=== PATIENT | female | born 1995 | race Caucasian/White ===

== ENCOUNTER 2018-12-10 17:40 | Emergency (ER) | payer SELFPAY ==
--- OUTSIDE RECORDS SUMMARY | 2018-12-10 17:42 | XMS REPORT ---
:1995 [facility] Address [address] [place]. [address] [place] [id number] Care Team Providers Name Role Phone Unavailable Unavailable Unavailable Problems This patient has no known problems. Allergies, Adverse Reactions, Alerts This patient has no known allergies or adverse reactions. Medications This patient has no known medications.
--- NOTE | 2018-12-10 18:21 | ER ---
Nurse's Notes [facility] Name: Vani Beltran Age: 23 yrs Sex: Female : 1995 Arrival Date: 12/10/2018 Time: 17:43 Bed 10 Private MD: None, None Diagnosis: Uvulitis Presentation: 12/10 17:57 Presenting complaint: Patient states: "I woke up with a sore throat today and I am aa5 worried I have strep". Pt denies other symptoms. Pt reports being 9 weeks . Pt reports taking Macrobid for a UTI since Tuesday. Transition of care: patient was not received from another setting of care. Onset of symptoms was December 10, 2018. Risk Assessment: Do you want to hurt yourself or someone else? Patient reports no desire to harm self or others. Initial Sepsis Screen: Does the patient meet any 2 criteria? No. Patient's initial sepsis screen is negative. Does the patient have a suspected source of infection? No. Patient's initial sepsis screen is negative. Care prior to arrival: None. 17:57 Method Of Arrival: Ambulatory aa5 17:57 Acuity: TRUMAN 4 aa5 Triage Assessment: 18:00 General: Appears in no apparent distress. comfortable, Behavior is calm, cooperative. aa5 Pain: Complains of pain in throat. EENT: Reports sore throat . Neuro: Level of Consciousness is awake, alert, obeys commands, Oriented to person, place, time, situation. Cardiovascular: Heart tones S1 S2 present Rhythm is regular. Respiratory: Denies cough, shortness of breath. GI: Patient currently denies nausea, vomiting. : Reports taking Macrobid for UTI. Derm: Skin is pink, warm \\T\\ dry. Musculoskeletal: Range of motion: intact in all extremities. 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 - Social history:: Smoking status: Patient uses tobacco products, smokes one-half pack cigarettes per day. - Ebola Screening: : No symptoms or risks identified at this time. Screenin:00 Abuse screen: Denies threats or abuse. Nutritional screening: No deficits noted. aa5 Tuberculosis screening: No symptoms or risk factors identified. Fall Risk None identified. Assessment: 18:00 Reassessment: See triage assessment . aa5 18:45 Reassessment: Patient is alert, oriented x 3, equal unlabored respirations, skin aa5 warm/dry/pink. Vital Signs: 17:59 BP 108 / 75; Pulse 100; Resp 18 S; Temp 98.4(TE); Pulse Ox 98% on R/A; Pain 5/10; aa5 ED Course: 17:43 Patient arrived in ED. mr 17:44 None, None is Private Physician. mr 17:58 Triage completed. aa5 17:58 Arm band placed on. aa5 18:00 Patient has correct armband on for positive identification. aa5 18:01 Karen Sharma RN is Primary Nurse. aa5 18:02 Nehemiah Moeller PA is PHCP. jr8 18:02 Alo Roland MD is Attending Physician. jr8 18:45 No provider procedures requiring assistance completed. Patient did not have IV access aa5 during this emergency room visit. Administered Medications: No medications were administered Outcome: 18:21 Discharge ordered by . jr8 18:45 Discharged to home ambulatory. aa5 18:45 Condition: stable 18:45 Discharge instructions given to patient, Instructed on discharge instructions, follow up and referral plans. medication usage, Demonstrated understanding of instructions, follow-up care, medications, Prescriptions given X 1. 18:47 Patient left the ED. aa5 Signatures: Maria L Koch Karen Sharma RN RN aa5 Nehemiah Moeller PA PA jr8 Corrections: (The following items were deleted from the chart) 17:59 17:57 Presenting complaint: Patient states: "I woke up with a sore throat today and I aa5 am worried I have strep". Pt denies other symptoms. aa5 18:01 17:57 Presenting complaint: Patient states: "I woke up with a sore throat today and I aa5 am worried I have strep". Pt denies other symptoms. Pt reports being 9 weeks . aa5
--- NOTE | 2018-12-10 18:21 | EDPHYS ---
Physician Documentation [facility] Name: Vani Beltran Age: 23 yrs Sex: Female : 1995 Arrival Date: 12/10/2018 Time: 17:43 Bed 10 Private MD: None, None ED Physician Alo Roland HPI: 12/10 18:15 This 23 yrs old Female presents to ER via Ambulatory with complaints of Sore jr8 Throat. 18:15 The patient presents with sore throat. The patient describes throat pain as constant. jr8 Onset: The symptoms/episode began/occurred acutely, yesterday. Severity of symptoms: At their worst the symptoms were mild, in the emergency department the symptoms are unchanged. Modifying factors: The symptoms are alleviated by nothing, the symptoms are aggravated by swallowing, Patient's oral intake status: good. Associated signs and symptoms: The patient has no apparent associated signs or symptoms. The patient has not experienced similar symptoms in the past. The patient has not recently seen a physician. 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 - Social history:: Smoking status: Patient uses tobacco products, smokes one-half pack cigarettes per day. - Ebola Screening: : No symptoms or risks identified at this time. ROS: 18:15 Eyes: Negative for injury, pain, redness, and discharge, Neck: Negative for injury, jr8 pain, and swelling, Cardiovascular: Negative for chest pain, palpitations, and edema, Respiratory: Negative for shortness of breath, cough, wheezing, and pleuritic chest pain, Abdomen/GI: Negative for abdominal pain, nausea, vomiting, diarrhea, and constipation, Back: Negative for injury and pain, MS/Extremity: Negative for injury and deformity, Skin: Negative for injury, rash, and discoloration, Neuro: Negative for headache, weakness, numbness, tingling, and seizure. 18:15 ENT: Positive for sore throat, Negative for drainage from ear(s), ear pain, rhinorrhea, sinus congestion, sinus pain, difficulty swallowing, difficulty handling secretions, hoarseness. Exam: 18:15 Eyes: Pupils equal round and reactive to light, extra-ocular motions intact. Lids and jr8 lashes normal. Conjunctiva and sclera are non-icteric and not injected. Cornea within normal limits. Periorbital areas with no swelling, redness, or edema. Neck: Trachea midline, no thyromegaly or masses palpated, and no cervical lymphadenopathy. Supple, full range of motion without nuchal rigidity, or vertebral point tenderness. No Meningismus. Cardiovascular: Regular rate and rhythm with a normal S1 and S2. No gallops, murmurs, or rubs. Normal PMI, no JVD. No pulse deficits. Respiratory: Lungs have equal breath sounds bilaterally, clear to auscultation and percussion. No rales, rhonchi or wheezes noted. No increased work of breathing, no retractions or nasal flaring. Abdomen/GI: Soft, non-tender, with normal bowel sounds. No distension or tympany. No guarding or rebound. No evidence of tenderness throughout. Back: No spinal tenderness. No costovertebral tenderness. Full range of motion. Skin: Warm, dry with normal turgor. Normal color with no rashes, no lesions, and no evidence of cellulitis. MS/ Extremity: Pulses equal, no cyanosis. Neurovascular intact. Full, normal range of motion. Neuro: Awake and alert, GCS 15, oriented to person, place, time, and situation. Cranial nerves II-XII grossly intact. Motor strength 5/5 in all extremities. Sensory grossly intact. Cerebellar exam normal. Normal gait. 18:15 ENT: Exam is negative for earache, ear discharge, TM abnormalities, nasal discharge, Mouth: Lips: moist, Oral mucosa: pink and intact, moist, Gums: pink, Tongue: is moist, Posterior pharynx: Airway: patent, Tonsils: bilateral tonsillectomy , Uvula: edematous, erythema. Vital Signs: 17:59 BP 108 / 75; Pulse 100; Resp 18 S; Temp 98.4(TE); Pulse Ox 98% on R/A; Pain 5/10; aa5 MDM: 18:02 Patient medically screened. 8 18:15 Data reviewed: vital signs, nurses notes, and as a result, I will discharge patient. jr8 Data interpreted: Pulse oximetry: on room air is 98 %. Interpretation: normal. Counseling: I had a detailed discussion with the patient and/or guardian regarding: the historical points, exam findings, and any diagnostic results supporting the discharge/admit diagnosis, the need for outpatient follow up, a family practitioner, to return to the emergency department if symptoms worsen or persist or if there are any questions or concerns that arise at home. Administered Medications: No medications were administered Disposition: 12/11 09:20 Co-signature as Attending Physician, Alo Roland MD I agree with the assessment and [facility] plan of care. Disposition: 12/10/18 18:21 Discharged to Home. Impression: Uvulitis . - Condition is Stable. - Discharge Instructions: Uvulitis. - Prescriptions for Amoxicillin 875 mg Oral Tablet - take 1 tablet by ORAL route every 12 hours for 10 days; 20 tablet. - Medication Reconciliation Form, Thank You Letter, Antibiotic Education, Prescription Opioid Use, Work release form form. - Follow up: Private Physician; When: 2 - 3 days; Reason: Recheck today's complaints, Continuance of care, Re-evaluation by your physician. - Problem is new. - Symptoms have improved. Signatures: Alo Roland MD MD cha Calderon, Audri, RN RN aa5 Nehemiah Moeller PA PA jr8 Corrections: (The following items were deleted from the chart) 12/10 18:47 18:21 12/10/2018 18:21 Discharged to Home. Impression: Uvulitis . Condition is Stable. aa5 Forms are Medication Reconciliation Form, Thank You Letter, Antibiotic Education, Prescription Opioid Use. Follow up: Private Physician; When: 2 - 3 days; Reason: Recheck today's complaints, Continuance of care, Re-evaluation by your physician. Problem is new. Symptoms have improved. jr8
== END 2018-12-10 18:47 | disposition home or self-care (01) ==
LOC: ER 17:40
DX: K12.2 Cellulitis and abscess of mouth (principal); F17.210 Nicotine dependence, cigarettes, uncomplicated
CPT/HCPCS: 99282

== ENCOUNTER 2018-12-30 19:51 | Emergency (ER) | payer OTHER, SELFPAY ==
--- OUTSIDE RECORDS SUMMARY | 2018-12-30 19:53 | XMS REPORT ---
:1995 [facility] Address [address] [place] [place] [address] Care Team Providers Name Role Phone Unavailable Unavailable Unavailable Problems This patient has no known problems. Allergies, Adverse Reactions, Alerts This patient has no known allergies or adverse reactions. Medications This patient has no known medications.
[2018-12-30 20:43] LABS: Urine Blood 3+ (NEG); Urine Glucose NEGATIVE (NEG); Urine Protein NEGATIVE (NEG)
--- NOTE | 2018-12-30 21:15 | RAD REPORT ---
EXAM DESCRIPTION: US - Transvaginal OB - 12/30/2018 9:08 pm CLINICAL HISTORY: ABD CRAMPING, Pelvic pain COMPARISON: No comparisonsNo comparisons FINDINGS: A single gestational sac is seen within the uterus. The shape of the sac is somewhat oblon g. Within the sac is a single pole with crown-rump length of 5 mm, correlating to estimated ges tational age of 6 weeks 1 day. Estimated date of delivery is 08/22/2019. Heart rate is 116 BPM.. The placenta is not yet developed due to early gestational age. The maternal adnexa and ovaries are within normal limits. Normal Doppler blood flow was demonstrated to both ovaries. IMPRESSION: Single live early intrauterine gestation with estimated gestational age of 6 weeks 1 day , TIFFANIE 08/22/2019. No unusual or unexpected finding.
[2018-12-30 21:59] LABS: Absolute Lymphocytes (CBC) 3.2 K/uL (0.7-4.9); Absolute Monocytes 0.7 K/uL (0.1-1.3); Absolute Neutrophil 6.2 K/uL (1.8-8.0); Basophils % 0.5 % (0-1.3); Eosinophils % 3.5 % (0-4.4); Lymphocytes % 30.3 % (15.3-44.8); MPV 8.3 fL (7.6-11.3); Monocytes % 7.1 % (3.3-12.3); RBC Red Blood Cell Count 4.43 M/uL (3.86-4.86)
[2018-12-30] MEDS ORDERED: NA CHLORIDE 0.9% 1,000 ML ONE (22:08)
[2018-12-30 22:40] LABS: BUN Blood Urea Nitrogen 6 mg/dL (7-18); Bicarbonate 25 mmol/L (21-32); Glucose Level 82 mg/dL (74-106); HCG, Quantitative 1190 mIU/mL (1-3); Potassium 3.7 mmol/L (3.5-5.1); Sodium Level 141 mmol/L (136-145)
--- NOTE | 2018-12-30 22:57 | ER ---
Nurse's Notes [facility] Name: Vani Beltran Age: 23 yrs Sex: Female : 1995 Arrival Date: 12/30/2018 Time: 19:55 Bed 8 Private MD: None, None Diagnosis: Threatened Presentation: 12/30 20:04 Presenting complaint: Patient states: Pt is supposed to be 13 weeks , had US on tl2 and there was no heartbeat, HCG level was 1,820. Light vaginal bleeding started last night with back pain. Transition of care: patient was not received from another setting of care. Onset of symptoms was December 29, 2018. Risk Assessment: Do you want to hurt yourself or someone else? Patient reports no desire to harm self or others. Initial Sepsis Screen: Does the patient meet any 2 criteria? No. Patient's initial sepsis screen is negative. Does the patient have a suspected source of infection? No. Patient's initial sepsis screen is negative. Care prior to arrival: None. 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 - Social history:: Smoking status: Patient uses tobacco products, smokes one-half pack cigarettes per day. - Ebola Screening: : No symptoms or risks identified at this time. Screenin:07 Abuse screen: Denies threats or abuse. Nutritional screening: No deficits noted. tl2 Tuberculosis screening: No symptoms or risk factors identified. Fall Risk None identified. Assessment: 20:25 Obstetrical Assessment: Patient reports back pain. General: Appears in no apparent aj1 distress. comfortable, Behavior is calm, cooperative, appropriate for age. Pain: Complains of pain in back. Neuro: Level of Consciousness is awake, alert, obeys commands, Oriented to person, place, time, situation, Speech is normal, Facial symmetry appears normal. Cardiovascular: Patient's skin is warm and dry. Respiratory: Airway is patent Respiratory effort is even, unlabored, Respiratory pattern is regular, symmetrical. GI: Abdomen is non-distended. : Reports vaginal bleeding that is light flow. EENT: No signs and/or symptoms were reported regarding the EENT system. Derm: No signs and/or symptoms reported regarding the dermatologic system. Skin is pink, warm \T\ dry. normal. 22:04 Reassessment: Patient appears in no apparent distress at this time. Patient and/or tl2 family updated on plan of care and expected duration. Pain level reassessed. Patient is alert, oriented x 3, equal unlabored respirations, skin warm/dry/pink. 23:07 Reassessment: Patient appears in no apparent distress at this time. Patient and/or tl2 family updated on plan of care and expected duration. Pain level reassessed. Patient is alert, oriented x 3, equal unlabored respirations, skin warm/dry/pink. pt verbalized understanding of discharge instructions, need for follow up and prescription usage. Vital Signs: 20:05 BP 127 / 77; Pulse 87; Resp 18; Temp 98.2(O); Pulse Ox 98% ; Weight 99.79 kg; Height 5 tl2 ft. 5 in. (165.10 cm); Pain 5/10; 22:02 BP 106 / 85; Pulse 97; Resp 18; Pulse Ox 98% on R/A; tl2 23:07 BP 118 / 77; Pulse 74; Resp 18; Pulse Ox 100% on R/A; tl2 20:05 Body Mass Index 36.61 (99.79 kg, 165.10 cm) tl2 ED Course: 19:55 Patient arrived in ED. mr 19:55 None, None is Private Physician. mr 20:05 Triage completed. tl2 20:05 Arm band placed on right wrist. tl2 20:09 Kaitlin Bonds FNP-C is [facility]. snw 20:09 Philip Andersen MD is Attending Physician. snw 20:25 Nicole Castillo, ANGELI is Primary Nurse. aj1 20:25 Patient has correct armband on for positive identification. Bed in low position. Call aj1 light in reach. Side rails up X 1. 20:25 No provider procedures requiring assistance completed. aj1 21:08 US Transvaginal Ob In Process Unspecified. EDMS 21:10 Ultrasound completed. Patient tolerated well. sg3 21:53 Inserted saline lock: 20 gauge in right antecubital area, using aseptic technique. oe Blood collected. 23:07 IV discontinued, intact, bleeding controlled, No redness/swelling at site. Pressure tl2 dressing applied. Administered Medications: 22:01 Drug: NS 0.9% 1000 ml Route: IV; Rate: 1 bolus; Site: right antecubital; tl2 23:09 Follow up: IV Status: Completed infusion; IV Intake: 500ml tl2 Intake: 23:09 IV: 500ml; Total: 500ml. tl2 Outcome: 22:57 Discharge ordered by . snmicaela 23:07 Discharged to home ambulatory. tl2 23:07 Condition: stable 23:07 Discharge instructions given to patient, Instructed on discharge instructions, follow up and referral plans. medication usage, Demonstrated understanding of instructions, follow-up care, medications, Prescriptions given X 1. 23:09 Patient left the ED. tl2 Signatures: Dispatcher [employer] EDMS Nicole Castillo RN RN aj1 Kaitlin Bonds, ZIGZAG APPLIQUER-C ZIGZAG APPLIQUER-Csnw Maria L Koch Taylor, RN RN tl2 Carter Pro Sarah sg3
--- NOTE | 2018-12-30 22:57 | EDPHYS ---
Physician Documentation [facility] Name: Vani Beltran Age: 23 yrs Sex: Female : 1995 Arrival Date: 12/30/2018 Time: 19:55 Bed 8 Private MD: None, None ED Physician Philip Andersen HPI: 12/30 20:24 This 23 yrs old Female presents to ER via Ambulatory with complaints of snw Vaginal Bleeding, + Preg <12wks. 20:24 The patient presents with vaginal bleeding that is light. Onset: The symptoms/episode snw began/occurred today. Associated signs and symptoms: Pertinent positives: vaginal bleeding. Severity of symptoms: At their worst the symptoms were very mild. The patient is sexually active, reportedly has a single partner. The patient has not experienced similar symptoms in the past. The patient has been recently seen by a physician: an line tester specialist. pt seen at [facility] for dating US on (2 days ago).No noted per US. 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 - Social history:: Smoking status: Patient uses tobacco products, smokes one-half pack cigarettes per day. - Ebola Screening: : No symptoms or risks identified at this time. ROS: 20:18 Constitutional: Negative for fever, chills, and weight loss, Eyes: Negative for injury, snw pain, redness, and discharge, ENT: Negative for injury, pain, and discharge, Neck: Negative for injury, pain, and swelling, Cardiovascular: Negative for chest pain, palpitations, and edema, Respiratory: Negative for shortness of breath, cough, wheezing, and pleuritic chest pain, Abdomen/GI: Negative for abdominal pain, nausea, vomiting, diarrhea, and constipation, Back: Negative for injury and pain, : Negative for injury, discharge, and swelling, light vaginal bleeding MS/Extremity: Negative for injury and deformity, Skin: Negative for injury, rash, and discoloration, Neuro: Negative for headache, weakness, numbness, tingling, and seizure, Psych: Negative for depression, anxiety, suicide ideation, homicidal ideation, and hallucinations. Exam: 20:18 Constitutional: This is a well developed, well nourished patient who is awake, alert, snw and in no acute distress. Head/Face: Normocephalic, atraumatic. Eyes: Pupils equal round and reactive to light, extra-ocular motions intact. Lids and lashes normal. Conjunctiva and sclera are non-icteric and not injected. Cornea within normal limits. Periorbital areas with no swelling, redness, or edema. ENT: Nares patent. No nasal discharge, no septal abnormalities noted. Tympanic membranes are normal and external auditory canals are clear. Oropharynx with no redness, swelling, or masses, exudates, or evidence of obstruction, uvula midline. Mucous membranes moist. Neck: Trachea midline, no thyromegaly or masses palpated, and no cervical lymphadenopathy. Supple, full range of motion without nuchal rigidity, or vertebral point tenderness. No Meningismus. Chest/axilla: Normal chest wall appearance and motion. Nontender with no deformity. No lesions are appreciated. Cardiovascular: Regular rate and rhythm with a normal S1 and S2. No gallops, murmurs, or rubs. Normal PMI, no JVD. No pulse deficits. Respiratory: Lungs have equal breath sounds bilaterally, clear to auscultation and percussion. No rales, rhonchi or wheezes noted. No increased work of breathing, no retractions or nasal flaring. Abdomen/GI: Soft, non-tender, with normal bowel sounds. No distension or tympany. No guarding or rebound. No evidence of tenderness throughout. Back: No spinal tenderness. No costovertebral tenderness. Full range of motion. Skin: Warm, dry with normal turgor. Normal color with no rashes, no lesions, and no evidence of cellulitis. MS/ Extremity: Pulses equal, no cyanosis. Neurovascular intact. Full, normal range of motion. Neuro: Awake and alert, GCS 15, oriented to person, place, time, and situation. Cranial nerves II-XII grossly intact. Motor strength 5/5 in all extremities. Sensory grossly intact. Cerebellar exam normal. Normal gait. Psych: Awake, alert, with orientation to person, place and time. Behavior, mood, and affect are within normal limits. Vital Signs: 20:05 BP 127 / 77; Pulse 87; Resp 18; Temp 98.2(O); Pulse Ox 98% ; Weight 99.79 kg; Height 5 tl2 ft. 5 in. (165.10 cm); Pain 5/10; 22:02 BP 106 / 85; Pulse 97; Resp 18; Pulse Ox 98% on R/A; tl2 23:07 BP 118 / 77; Pulse 74; Resp 18; Pulse Ox 100% on R/A; tl2 20:05 Body Mass Index 36.61 (99.79 kg, 165.10 cm) tl2 MDM: 20:10 Patient medically screened. snw 22:57 Data reviewed: vital signs, nurses notes. Data interpreted: Pulse oximetry: on room air snw is 98 %. Interpretation: normal. Counseling: I had a detailed discussion with the patient and/or guardian regarding: the historical points, exam findings, and any diagnostic results supporting the discharge/admit diagnosis, lab results, radiology results, the need for outpatient follow up, to return to the emergency department if symptoms worsen or persist or if there are any questions or concerns that arise at home. Special discussion: Based on the history and exam findings, there is no indication for further emergent testing or inpatient evaluation. I discussed with the patient/guardian the need to see the OB Gyne specialist for further evaluation of the symptoms. 12/30 20:13 Order name: Urine Dipstick--Ancillary (enter results); Complete Time: 21:01 ar5 12/30 20:13 Order name: Urine --Ancillary (enter results); Complete Time: 21:01 ar5 12/30 20:17 Order name: HCG-Quantitative; Complete Time: 22:44 snw 12/30 20:17 Order name: CBC with Diff; Complete Time: 22:20 snw 12/30 20:17 Order name: Chem 7; Complete Time: 22:44 snw 12/30 20:17 Order name: Rh Typing; Complete Time: 22:36 snw 12/30 20:17 Order name: US Transvaginal Ob; Complete Time: 21:22 snw Administered Medications: 22:01 Drug: NS 0.9% 1000 ml Route: IV; Rate: 1 bolus; Site: right antecubital; tl2 23:09 Follow up: IV Status: Completed infusion; IV Intake: 500ml tl2 Disposition: 12/31 01:22 Co-signature as Attending Physician, Philip Andersen MD. rn Disposition: 12/30/18 22:57 Discharged to Home. Impression: Threatened . - Condition is Stable. - Discharge Instructions: Threatened Miscarriage, First Trimester of , Pelvic Rest. - Prescriptions for Vitamin 27- 0.8 mg Oral Tablet - take 1 tablet by ORAL route once daily; 60 tablet. - Medication Reconciliation Form, Thank You Letter, Antibiotic Education, Prescription Opioid Use form. - Follow up: Private Physician; When: 2 - 3 days; Reason: Recheck today's complaints, Continuance of care, Re-evaluation by your physician. Follow up: Emergency Department; When: As needed; Reason: Worsening of condition. Signatures: Dispatcher [employer] EDMS Kaitlin Bonds, RAIL CAR DRIVER-C RAIL CAR DRIVER-Csnw Philip Andersen MD MD rn Knox, Taylor, RN RN tl2 Corrections: (The following items were deleted from the chart) 12/30 23:09 22:57 12/30/2018 22:57 Discharged to Home. Impression: Threatened . Condition tl2 is Stable. Forms are Medication Reconciliation Form, Thank You Letter, Antibiotic Education, Prescription Opioid Use. Follow up: Private Physician; When: 2 - 3 days; Reason: Recheck today's complaints, Continuance of care, Re-evaluation by your physician. Follow up: Emergency Department; When: As needed; Reason: Worsening of condition. snw
== END 2018-12-30 23:09 | disposition home or self-care (01) ==
LOC: ER 19:51
DX: O20.0 Threatened abortion (principal); Z3A.01 Less than 8 weeks gestation of pregnancy
CPT/HCPCS: 36415; 76817; 80048; 81003; 81025; 84702; 85025; 86901; 96360; 99284; J7030

== ENCOUNTER 2019-01-01 07:29 | Emergency (ER) | payer OTHER ==
--- OUTSIDE RECORDS SUMMARY | 2019-01-01 07:31 | XMS REPORT ---
:1995 Author Organization [facility] Address [address] [place]. [address] [place] [id number] Care Team Providers Name Role Phone Unavailable Unavailable Unavailable Problems This patient has no known problems. Allergies, Adverse Reactions, Alerts This patient has no known allergies or adverse reactions. Medications This patient has no known medications.
[2019-01-01 08:08] LABS: Absolute Lymphocytes (CBC) 2.4 K/uL (0.7-4.9); Absolute Monocytes 0.6 K/uL (0.1-1.3); Absolute Neutrophil 4.9 K/uL (1.8-8.0); Basophils % 0.8 % (0-1.3); Hematocrit 37.8 % (36.0-45.0); Lymphocytes % 28.6 % (15.3-44.8); MPV 8.3 fL (7.6-11.3); Monocytes % 7.6 % (3.3-12.3); RBC Red Blood Cell Count 4.23 M/uL (3.86-4.86)
[2019-01-01 09:19] LABS: Urine Blood 3+ (NEG); Urine Glucose NEGATIVE (NEG); Urine Protein 1+ (NEG); Urine Specific Gravity >1.030 (1.005-1.030); Urine pH 5.5 (5.0-7.0)
--- NOTE | 2019-01-01 10:09 | ER ---
Nurse's Notes [facility] Name: Vani Beltran Age: 23 yrs Sex: Female : 1995 Arrival Date: 01/01/2019 Time: 07:32 Bed 17 Private MD: Diagnosis: Threatened Presentation: 01/01 07:35 Presenting complaint: Patient states: "I was seen here on Tuesday for vaginal bleeding aa5 and they said I was 6 weeks but now I am started passing clots around 2 am". Pt denies pain. Transition of care: patient was not received from another setting of care. Onset of symptoms was December 2018. Risk Assessment: Do you want to hurt yourself or someone else? Patient reports no desire to harm self or others. Initial Sepsis Screen: Does the patient meet any 2 criteria? No. Patient's initial sepsis screen is negative. Does the patient have a suspected source of infection? No. Patient's initial sepsis screen is negative. Care prior to arrival: None. 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 - Social history:: Smoking status: Patient uses tobacco products, smokes one-half pack cigarettes per day. - Ebola Screening: : No symptoms or risks identified at this time. Screenin:43 Abuse screen: Denies threats or abuse. Denies injuries from another. Nutritional sv screening: No deficits noted. Tuberculosis screening: No symptoms or risk factors identified. Fall Risk None identified. Assessment: 07:50 General: Appears in no apparent distress. comfortable, well developed, Behavior is sv calm, cooperative, appropriate for age. Pain: Denies pain. Neuro: Level of Consciousness is awake, alert, obeys commands, Oriented to person, place, time, situation, Moves all extremities. Full function Gait is steady, Speech is normal. Respiratory: Airway is patent Respiratory effort is even, unlabored, Respiratory pattern is regular, symmetrical. : Reports vaginal bleeding that is with clots, moderate flow, since Tuesday. Derm: Skin is pink, warm \\T\\ dry. Musculoskeletal: Range of motion: intact in all extremities. 09:50 Reassessment: Patient appears in no apparent distress at this time. No changes from sv previously documented assessment. Patient and/or family updated on plan of care and expected duration. Pain level reassessed. Patient is alert, oriented x 3, equal unlabored respirations, skin warm/dry/pink. Informed pt that the chemistry machine is down at this time but someone is here fixing it. I apologized for the wait. Pt stated that she didn't want to wait for the result, if someone could just call her with it. Informed Jag MUNOZ. 10:00 Reassessment: Jag MUNOZ at bedside speaking with the pt. sv 10:10 Reassessment: Pt stated that she was leaving and not waiting for the paperwork. sv Vital Signs: 07:37 BP 108 / 70; Pulse 90; Resp 16 S; Temp 98.4(TE); Pulse Ox 99% on R/A; Weight 99.79 kg aa5 (R); Height 5 ft. 5 in. (165.10 cm) (R); Pain 0/10; 07:37 Body Mass Index 36.61 (99.79 kg, 165.10 cm) aa5 ED Course: 07:32 Patient arrived in ED. mr 07:35 Arm band placed on. aa5 07:36 Triage completed. aa5 07:43 Alvina Roy, RN is Primary Nurse. sv 07:43 Patient has correct armband on for positive identification. Bed in low position. Call sv light in reach. Door closed. Head of bed elevated. 07:44 Jag Almanza, MILL LABOR SUPERVISOR is PHCP. pm1 07:45 Awaiting ED provider evaluation. sv 08:02 Initial lab(s) drawn, by me, sent to lab. sv 08:07 Awaiting lab results. sv 08:25 Alo Roland MD is Attending Physician. pm1 09:16 Awaiting lab results. sv 10:11 No provider procedures requiring assistance completed. Patient did not have IV access sv during this emergency room visit. Administered Medications: No medications were administered Outcome: 10:09 Discharge ordered by . pm1 10:10 Discharged to home ambulatory, with friend, Pt left without signing paperwork. sv 10:10 Condition: stable 10:11 Patient left the ED. sv Signatures: Alvina Roy RN RN sv Rivera, Mary mr Sharma, Karen, RN RN aa5 Jag Almanza, MILL LABOR SUPERVISOR MILL LABOR SUPERVISOR pm1
--- NOTE | 2019-01-01 10:10 | EDPHYS ---
Physician Documentation [facility] Name: Vani Beltran Age: 23 yrs Sex: Female : 1995 Arrival Date: 01/01/2019 Time: 07:32 Bed 17 Private MD: ED Physician Alo Roland HPI: 01/01 07:52 This 23 yrs old Female presents to ER via Ambulatory with complaints of pm1 Vaginal Bleeding, 6wks . 07:52 The patient presents with vaginal bleeding that is moderate, 3 pads since Tuesday, pm1 with 2 clots since onset of bleeding. Onset: The symptoms/episode began/occurred 3 day(s) ago. Modifying factors: The symptoms are alleviated by nothing, the symptoms are aggravated by nothing. Associated signs and symptoms: Pertinent negatives: constipation, cramping, diarrhea, dysuria, fever, nausea, urinary frequency, vomiting, abdominal pain. Severity of symptoms: in the emergency department the symptoms are actually worse. The patient has been recently seen at the [facility] Emergency Department, for similar complaints labs were performed, an ultrasound was performed, 6 week IUP with U/S in ER 2 days ago. 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 - Social history:: Smoking status: Patient uses tobacco products, smokes one-half pack cigarettes per day. - Ebola Screening: : No symptoms or risks identified at this time. ROS: 07:52 Positive for vaginal bleeding, Negative for urinary symptoms, pelvic pain, flank pm1 pain, burning with urination, difficulty urinating. 07:52 Constitutional: Negative for fever, chills, and weight loss, Eyes: Negative for injury, pain, redness, and discharge, ENT: Negative for injury, pain, and discharge, Neck: Negative for injury, pain, and swelling, Cardiovascular: Negative for chest pain, palpitations, and edema, Respiratory: Negative for shortness of breath, cough, wheezing, and pleuritic chest pain, Abdomen/GI: Negative for abdominal pain, nausea, vomiting, diarrhea, and constipation, Back: Negative for injury and pain, MS/Extremity: Negative for injury and deformity, Skin: Negative for injury, rash, and discoloration, Neuro: Negative for headache, weakness, numbness, tingling, and seizure. Exam: 07:52 Constitutional: This is a well developed, well nourished patient who is awake, alert, pm1 and in no acute distress. Head/Face: Normocephalic, atraumatic. Eyes: Pupils equal round and reactive to light, extra-ocular motions intact. Lids and lashes normal. Conjunctiva and sclera are non-icteric and not injected. Cornea within normal limits. Periorbital areas with no swelling, redness, or edema. ENT: Nares patent. No nasal discharge, no septal abnormalities noted. Tympanic membranes are normal and external auditory canals are clear. Oropharynx with no redness, swelling, or masses, exudates, or evidence of obstruction, uvula midline. Mucous membranes moist. Neck: Trachea midline, no thyromegaly or masses palpated, and no cervical lymphadenopathy. Supple, full range of motion without nuchal rigidity, or vertebral point tenderness. No Meningismus. Chest/axilla: Normal chest wall appearance and motion. Nontender with no deformity. No lesions are appreciated. Cardiovascular: Regular rate and rhythm with a normal S1 and S2. No gallops, murmurs, or rubs. Normal PMI, no JVD. No pulse deficits. Respiratory: Lungs have equal breath sounds bilaterally, clear to auscultation and percussion. No rales, rhonchi or wheezes noted. No increased work of breathing, no retractions or nasal flaring. Abdomen/GI: Soft, non-tender, with normal bowel sounds. No distension or tympany. No guarding or rebound. No evidence of tenderness throughout. Back: No spinal tenderness. No costovertebral tenderness. Full range of motion. Skin: Warm, dry with normal turgor. Normal color with no rashes, no lesions, and no evidence of cellulitis. MS/ Extremity: Pulses equal, no cyanosis. Neurovascular intact. Full, normal range of motion. 07:52 Neuro: Orientation: is normal, Motor: is normal, moves all fours, Sensation: is normal, no obvious gross deficits. Vital Signs: 07:37 BP 108 / 70; Pulse 90; Resp 16 S; Temp 98.4(TE); Pulse Ox 99% on R/A; Weight 99.79 kg aa5 (R); Height 5 ft. 5 in. (165.10 cm) (R); Pain 0/10; 07:37 Body Mass Index 36.61 (99.79 kg, 165.10 cm) aa5 MDM: 07:44 Patient medically screened. pm1 07:50 Data reviewed: vital signs. Data interpreted: Pulse oximetry: on room air is 99 %. pm1 Interpretation: normal. 10:07 ED course: BMP machine and beta HCG machines are not working. microelectronics technician is working pm1 on repairing them. Patient does not want to wait for the results and wants to go home. . 01/01 07:48 Order name: CBC with Diff; Complete Time: 08:25 pm1 01/01 07:48 Order name: BMP; Complete Time: 13:02 pm1 01/01 07:48 Order name: Urine Dipstick-Ancillary (obtain specimen); Complete Time: 08:04 pm1 01/01 07:48 Order name: Beta hcg; Complete Time: 13:02 pm1 01/01 08:12 Order name: Urine Dipstick--Ancillary (enter results); Complete Time: 09:27 bd 01/01 08:12 Order name: Urine --Ancillary (enter results); Complete Time: 09:27 bd Administered Medications: No medications were administered Disposition: 14:15 Co-signature as Attending Physician, Alo Roland MD I agree with the assessment and [facility] plan of care. Disposition: 01/01/19 10:09 Discharged to Home. Impression: Threatened . - Condition is Stable. - Discharge Instructions: Threatened Miscarriage, Pelvic Rest. - Medication Reconciliation Form, Thank You Letter form. - Follow up: Emergency Department; When: As needed; Reason: Worsening of condition. Follow up: Private Physician; When: 2 - 3 days; Reason: Recheck today's complaints, Continuance of care, Re-evaluation by your physician. - Problem is new. - Symptoms have improved. Signatures: Dispatcher [employer] Alvina Quinones RN RN sv Anderson, Corey, MD MD cha Calderon, Audri RN RN aa5 Jag Almanza NP QUALITY ASSURANCE ADVISOR pm1 Corrections: (The following items were deleted from the chart) 10:11 10:09 01/01/2019 10:09 Discharged to Home. Impression: Threatened . Condition sv is Stable. Forms are Medication Reconciliation Form, Thank You Letter, Antibiotic Education, Prescription Opioid Use. Follow up: Emergency Department; When: As needed; Reason: Worsening of condition. Follow up: Private Physician; When: 2 - 3 days; Reason: Recheck today's complaints, Continuance of care, Re-evaluation by your physician. Problem is new. Symptoms have improved. pm1
[2019-01-01 12:15] LABS: BUN Blood Urea Nitrogen 7 mg/dL (7-18); Bicarbonate 25 mmol/L (21-32); Glucose Level 91 mg/dL (74-106); HCG, Quantitative 942 mIU/mL (1-3); Potassium 3.7 mmol/L (3.5-5.1); Sodium Level 141 mmol/L (136-145)
== END 2019-01-01 10:11 | disposition home or self-care (01) ==
LOC: ER 07:29
DX: O20.0 Threatened abortion (principal); O99.331 Smoking (tobacco) complicating pregnancy, first trimester; F17.210 Nicotine dependence, cigarettes, uncomplicated; Z3A.01 Less than 8 weeks gestation of pregnancy
CPT/HCPCS: 36415; 80048; 81003; 81025; 84702; 85025; 99283

== ENCOUNTER 2019-01-01 20:31 | Emergency (ER) | payer OTHER ==
--- OUTSIDE RECORDS SUMMARY | 2019-01-01 20:33 | XMS REPORT ---
:1995 [facility] Address [address] [place]. [address] [place] [id number] Care Team Providers Name Role Phone Unavailable Unavailable Unavailable Problems This patient has no known problems. Allergies, Adverse Reactions, Alerts This patient has no known allergies or adverse reactions. Medications This patient has no known medications.
[2019-01-01 21:05] LABS: Absolute Monocytes 0.8 K/uL (0.1-1.3); Absolute Neutrophil 6.2 K/uL (1.8-8.0); Basophils % 0.6 % (0-1.3); Hematocrit 35.3 % (36.0-45.0); Lymphocytes % 28.9 % (15.3-44.8); MPV 8.6 fL (7.6-11.3); Monocytes % 7.3 % (3.3-12.3)
[2019-01-01] MEDS ORDERED: FENTANYL CITR 100 MCG/2 ML ONE ×2 (21:15→22:57)
[2019-01-01] MEDS ORDERED: NA CHLORIDE 0.9% 1,000 ML ONE (21:15)
[2019-01-01 21:19] LABS: BUN Blood Urea Nitrogen 10 mg/dL (7-18); Bicarbonate 23 mmol/L (21-32); Glucose Level 111 mg/dL (74-106); Potassium 3.7 mmol/L (3.5-5.1); Sodium Level 139 mmol/L (136-145)
--- NOTE | 2019-01-01 23:56 | ER ---
Nurse's Notes [facility] Name: Vani Beltran Age: 23 yrs Sex: Female : 1995 Arrival Date: 01/01/2019 Time: 20:33 Bed 24 Private MD: Diagnosis: Complete or unspecified spontaneous without complication Presentation: 01/01 20:37 Presenting complaint: EMS states: patient was here this morning for the same complaint mg2 of vaginal bleeding, 13 weeks . she also complained of abdominal pain. no previous hx of miscarriages. she said bleeding was non-stop since she left ed this morning \T\ 1000H. Transition of care: patient was not received from another setting of care. Onset of symptoms was January 01, 2019. Risk Assessment: Do you want to hurt yourself or someone else? Patient reports no desire to harm self or others. Initial Sepsis Screen: Does the patient meet any 2 criteria? No. Patient's initial sepsis screen is negative. Does the patient have a suspected source of infection? No. Patient's initial sepsis screen is negative. Care prior to arrival: Medication(s) given: Normal saline infusion, 500 mL. 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 - Social history:: Smoking status: Patient uses tobacco products, smokes one-half pack cigarettes per day, Patient/guardian denies using alcohol, street drugs, IV drugs. - Ebola Screening: : No symptoms or risks identified at this time. Screenin:43 Abuse screen: Denies threats or abuse. Denies injuries from another. Nutritional mg2 screening: No deficits noted. Tuberculosis screening: No symptoms or risk factors identified. Fall Risk IV access (20 points). Assessment: 20:46 General: Appears in no apparent distress. comfortable, Behavior is calm, cooperative. mg2 Pain: Complains of pain in abdomen Pain does not radiate. Pain currently is 8 out of 10 on a pain scale. Quality of pain is described as aching, Pain began gradually, Is intermittent. Neuro: Level of Consciousness is awake, alert, obeys commands, Oriented to person, place, time, situation. Cardiovascular: Capillary refill < 3 seconds Patient's skin is warm and dry. Respiratory: Airway is patent Respiratory effort is even, unlabored, Respiratory pattern is regular, symmetrical. GI: Reports lower abdominal pain. : vaginal bleeding. EENT: No signs and/or symptoms were reported regarding the EENT system. Derm: Skin is intact, is healthy with good turgor, Skin is pink, warm \T\ dry. normal. Musculoskeletal: Circulation, motion, and sensation intact. Capillary refill < 3 seconds. 21:22 Reassessment: patient sent to ultrasound via wheelchair. mg2 Vital Signs: 20:40 BP 123 / 64; Pulse 91; Resp 18; Temp 98.7; Pulse Ox 94% on R/A; Weight 99.79 kg; Height mg2 5 ft. 5 in. (165.10 cm); Pain 8/10; 22:44 BP 107 / 65; Pulse 83; Resp 18; Pulse Ox 100% on R/A; Pain 8/10; mg2 01/02 00:27 BP 115 / 65; Pulse 80; Resp 18; Pulse Ox 100% on R/A; Pain 3/10; mg2 01/01 20:40 Body Mass Index 36.61 (99.79 kg, 165.10 cm) mg2 ED Course: 01/01 20:33 Patient arrived in ED. mg2 20:37 Gordo Uribe, RN is Primary Nurse. mg2 20:40 Triage completed. mg2 20:43 Arm band placed on. mg2 20:44 Maintain EMS IV. Dressing intact. Good blood return noted. Site clean \T\ dry. Gauge \T\ mg 2 site: 20 \T\ RAC. IV is patent, is intact, with fluids infusing freely, with good blood return. 20:47 Patient has correct armband on for positive identification. mg2 20:53 Kaitlin Bonds FNP-C is PHCP. snw 20:53 Bertha Reaves MD is Attending Physician. snw 20:58 TS Sent. mg2 20:58 Basic Metabolic Panel Sent. mg2 20:58 CBC with Diff Sent. mg2 21:03 Patient taken to ultrasound. liang 21:26 US Transvaginal Ob In Process Unspecified. EDMS 01/02 00:17 Assist provider with pelvic exam: Set up pelvic tray. Performed by Kaitlin GARCIA Patient tolerated well. IV discontinued, intact, bleeding controlled, No redness/swelling at site. Pressure dressing applied. Administered Medications: 01/01 21:16 Drug: NS 0.9% 1000 ml Route: IV; Rate: 1 bolus; Site: right antecubital; mg2 23:25 Follow up: Response: No adverse reaction; IV Status: Completed infusion mg2 21:16 Drug: fentaNYL (PF) 25 mcg Route: IVP; Site: right antecubital; mg2 22:30 Follow up: Response: No adverse reaction; Marked relief of symptoms mg2 22:55 Drug: fentaNYL (PF) 25 mcg Route: IVP; Site: right antecubital; mg2 01/02 00:23 Follow up: Response: No adverse reaction; Marked relief of symptoms mg2 00:22 Drug: METHERgine 0.2 mg Route: PO; mg2 00:22 Follow up: Response: No adverse reaction; Medication administered at discharge. mg2 00:22 Drug: [place] 5 mg-325 mg 1 tabs Route: PO; mg2 00:22 Follow up: Response: No adverse reaction; Medication administered at discharge. mg2 Outcome: 01/01 23:55 Discharge ordered by MD. mcmahon 01/02 00:28 Discharged to home ambulatory. mg2 Condition: stable Discharge instructions given to patient, family, Instructed on discharge instructions, follow up and referral plans. medication usage, Demonstrated understanding of instructions, follow-up care, medications, Prescriptions given X 2. 00:36 Patient left the ED. mg2 Signatures: Dispatcher [employer] EDAZ Kaitlin Bonds FNP-C BRANCH SERVICE SPECIALIST-Elier Diaz jd, Michele, ANGELI RN mg2 Corrections: (The following items were deleted from the chart) 01/01 21:32 20:58 ABO/RH TYPING+BB.LAB.BRZ drawn and sent. mg2 EDAZ 01/02 00:18 01/01 20:44 No provider procedures requiring assistance completed. mg2 mg2
--- NOTE | 2019-01-01 23:56 | EDPHYS ---
Physician Documentation [facility] Name: Vani Beltran Age: 23 yrs Sex: Female : 1995 Arrival Date: 01/01/2019 Time: 20:33 Bed 24 Private MD: ED Physician Bertha Revaes HPI: 01/02 00:44 This 23 yrs old Female presents to ER via EMS with complaints of miscarriage, snw vaginal bleeding. 00:44 The patient presents with vaginal bleeding that is heavy, with clots. Onset: The snw symptoms/episode began/occurred gradually, this morning, and became worse 2 hours prior to arrival. Modifying factors: The symptoms are alleviated by nothing. Associated signs and symptoms: Pertinent positives: cramping, vaginal bleeding. Severity of symptoms: At their worst the symptoms were moderate. The patient has not experienced similar symptoms in the past. The patient has been recently seen by a physician: The patient has been recently seen at the [facility] Emergency Department, for similar complaints in the am . 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 - Social history:: Smoking status: Patient uses tobacco products, smokes one-half pack cigarettes per day, Patient/guardian denies using alcohol, street drugs, IV drugs. - Ebola Screening: : No symptoms or risks identified at this time. ROS: 01/02 00:43 Constitutional: Negative for fever, chills, and weight loss, Eyes: Negative for injury, snw pain, redness, and discharge, ENT: Negative for injury, pain, and discharge, Neck: Negative for injury, pain, and swelling, Cardiovascular: Negative for chest pain, palpitations, and edema, Respiratory: Negative for shortness of breath, cough, wheezing, and pleuritic chest pain, Abdomen/GI: Negative for abdominal pain, nausea, vomiting, diarrhea, and constipation, Back: Negative for injury and pain, MS/Extremity: Negative for injury and deformity, Skin: Negative for injury, rash, and discoloration, Neuro: Negative for headache, weakness, numbness, tingling, and seizure. : Positive for vaginal bleeding, abdominal cramping. Exam: 00:38 Constitutional: This is a well developed, well nourished patient who is awake, alert, snw and in no acute distress. Head/Face: Normocephalic, atraumatic. Eyes: Pupils equal round and reactive to light, extra-ocular motions intact. Lids and lashes normal. Conjunctiva and sclera are non-icteric and not injected. Cornea within normal limits. Periorbital areas with no swelling, redness, or edema. ENT: Nares patent. No nasal discharge, no septal abnormalities noted. Tympanic membranes are normal and external auditory canals are clear. Oropharynx with no redness, swelling, or masses, exudates, or evidence of obstruction, uvula midline. Mucous membranes moist. Neck: Trachea midline, no thyromegaly or masses palpated, and no cervical lymphadenopathy. Supple, full range of motion without nuchal rigidity, or vertebral point tenderness. No Meningismus. Chest/axilla: Normal chest wall appearance and motion. Nontender with no deformity. No lesions are appreciated. Cardiovascular: Regular rate and rhythm with a normal S1 and S2. No gallops, murmurs, or rubs. Normal PMI, no JVD. No pulse deficits. Respiratory: Lungs have equal breath sounds bilaterally, clear to auscultation and percussion. No rales, rhonchi or wheezes noted. No increased work of breathing, no retractions or nasal flaring. Abdomen/GI: Soft, non-tender, with normal bowel sounds. No distension or tympany. No guarding or rebound. No evidence of tenderness throughout. Back: No spinal tenderness. No costovertebral tenderness. Full range of motion. Pelvic Exam: Normal external genitalia. Speculum exam with open cervical os, Moderate bleeding noted. Large clots evacuated. Fetus expelled into speculum. Sent POC to lab. Gravid uterus. Bleeding controlled post POC removal Skin: Warm, dry with normal turgor. Normal color with no rashes, no lesions, and no evidence of cellulitis. MS/ Extremity: Pulses equal, no cyanosis. Neurovascular intact. Full, normal range of motion. Neuro: Awake and alert, GCS 15, oriented to person, place, time, and situation. Cranial nerves II-XII grossly intact. Motor strength 5/5 in all extremities. Sensory grossly intact. Cerebellar exam normal. Normal gait. Vital Signs: 01/01 20:40 BP 123 / 64; Pulse 91; Resp 18; Temp 98.7; Pulse Ox 94% on R/A; Weight 99.79 kg; Height mg2 5 ft. 5 in. (165.10 cm); Pain 8/10; 22:44 BP 107 / 65; Pulse 83; Resp 18; Pulse Ox 100% on R/A; Pain 8/10; mg2 01/02 00:27 BP 115 / 65; Pulse 80; Resp 18; Pulse Ox 100% on R/A; Pain 3/10; mg2 01/01 20:40 Body Mass Index 36.61 (99.79 kg, 165.10 cm) mg2 MDM: 01/01 21:01 Patient medically screened. snw 01/02 00:43 Data reviewed: vital signs, nurses notes. Data interpreted: Pulse oximetry: on room air snw is 100 %. Interpretation: normal. Counseling: I had a detailed discussion with the patient and/or guardian regarding: the historical points, exam findings, and any diagnostic results supporting the discharge/admit diagnosis, lab results, radiology results, the need for outpatient follow up, to return to the emergency department if symptoms worsen or persist or if there are any questions or concerns that arise at home. Response to treatment: the patient's symptoms have markedly improved after treatment. Special discussion: Based on the patient's Hx, exam, and Dx evaluation, there is no indication for emergent surgery or inpatient Tx. It is understood by the patient/guardian that if the Sx's persist or worsen they need to return immediately for re-evaluation. Based on the history and exam findings, there is no indication for further emergent testing or inpatient evaluation. I discussed with the patient/guardian the need to see the OB Gyne specialist for further evaluation of the symptoms. 00:46 ED course: Pt alert and Ox3, no acute distress. Voices understanding of treatment plan snw and follow up. 01/01 20:50 Order name: Basic Metabolic Panel; Complete Time: 21:29 mg2 01/01 20:50 Order name: CBC with Diff; Complete Time: 21:18 mg2 01/01 20:53 Order name: TS; Complete Time: 22:11 snw 01/01 21:01 Order name: US Transvaginal Ob snw 01/01 22:09 Order name: ABO/RH no charge; Complete Time: 22:11 EDIA 01/01 20:50 Order name: IV Saline Lock; Complete Time: 20:50 mg2 01/01 20:50 Order name: Labs collected and sent; Complete Time: 20:50 mg2 01/01 20:50 Order name: NPO; Complete Time: 20:50 mg2 Administered Medications: 01/01 21:16 Drug: NS 0.9% 1000 ml Route: IV; Rate: 1 bolus; Site: right antecubital; mg2 23:25 Follow up: Response: No adverse reaction; IV Status: Completed infusion mg2 21:16 Drug: fentaNYL (PF) 25 mcg Route: IVP; Site: right antecubital; mg2 22:30 Follow up: Response: No adverse reaction; Marked relief of symptoms mg2 22:55 Drug: fentaNYL (PF) 25 mcg Route: IVP; Site: right antecubital; mg2 01/02 00:23 Follow up: Response: No adverse reaction; Marked relief of symptoms mg2 00:22 Drug: METHERgine 0.2 mg Route: PO; mg2 00:22 Follow up: Response: No adverse reaction; Medication administered at discharge. mg2 00:22 Drug: [place] 5 mg-325 mg 1 tabs Route: PO; mg2 00:22 Follow up: Response: No adverse reaction; Medication administered at discharge. mg2 Disposition: 01/01/19 23:55 Discharged to Home. Impression: Complete or unspecified spontaneous without complication. - Condition is Stable. - Discharge Instructions: Rehydration, Pediatric, Miscarriage. - Prescriptions for Tylenol- Codeine #3 300-30 mg Oral Tablet - take 2 tablets by ORAL route every 6 hours As needed; 16 tablet. Methergine 0.2 mg Oral tablet - take 1 tablet by ORAL route every 6 hours; 4 tablet. - Medication Reconciliation Form, Thank You Letter, Antibiotic Education, Prescription Opioid Use form. - Follow up: Private Physician; When: 1 - 2 days; Reason: Recheck today's complaints, Continuance of care, Re-evaluation by your physician. Follow up: Emergency Department; When: As needed; Reason: Worsening of condition. Signatures: Dispatcher [employer] [facility] Kaitlin Bonds, DENTAL TECH-C DENTAL TECH-Csnw Gordo Uribe, RN RN mg2 Corrections: (The following items were deleted from the chart) 01/01 21:32 20:50 ABO/RH TYPING+BB.LAB.BRZ ordered. [facility] 01/02 00:36 01/01 23:55 01/01/2019 23:55 Discharged to Home. Impression: Complete or unspecified mg2 spontaneous without complication. Condition is Stable. Forms are Medication Reconciliation Form, Thank You Letter, Antibiotic Education, Prescription Opioid Use. Follow up: Private Physician; When: 1 - 2 days; Reason: Recheck today's complaints, Continuance of care, Re-evaluation by your physician. Follow up: Emergency Department; When: As needed; Reason: Worsening of condition. snw
[2019-01-02] MEDS ORDERED: HYDROCODONE/APAP 5/325 MG TAB ONE (00:19)
[2019-01-02] MEDS ORDERED: METHYLERGONOVINE 0.2 MG TAB PO ONE (00:27)
--- NOTE | 2019-01-02 08:11 | RAD REPORT ---
EXAM DESCRIPTION: US - Transvaginal OB - 01/01/2019 9:25 pm CLINICAL HISTORY: with abdominal pain and vaginal bleeding COMPARISON: December 30, 2018 FINDINGS: The uterus 9 x 7 x 7 centimeters. The gestational sac has migrated into lower uterine seg ment near the cervical os. The pole is no longer identified. Endometrial stripe measures 2.3 ce ntimeters Ovaries are normal in size and echotexture. An adnexal mass is not noted. No significant free fluid is seen. IMPRESSION: A gestational sac has migrated into the lower uterine segment compatible with an impendi ng
== END 2019-01-02 00:36 | disposition home or self-care (01) ==
LOC: ER 20:31
DX: O03.9 Complete or unspecified spontaneous abortion without complication (principal); O99.331 Smoking (tobacco) complicating pregnancy, first trimester; F17.210 Nicotine dependence, cigarettes, uncomplicated; Z3A.13 13 weeks gestation of pregnancy
CPT/HCPCS: 36415; 76817; 80048; 85025; 86850; 86900; 86901; 88305; 96361; 96374; 99284; J3010; J7030

== ENCOUNTER 2019-03-10 17:04 | Emergency (ER) | payer OTHER ==
--- OUTSIDE RECORDS SUMMARY | 2019-03-10 17:05 | XMS REPORT ---
:1995 [facility] [address] [place] [address] Dr. Bentley [address] [place] [id number] Care Team Providers Name Role Phone Unavailable Unavailable Unavailable Problems This patient has no known problems. Allergies, Adverse Reactions, Alerts This patient has no known allergies or adverse reactions. Medications This patient has no known medications.
--- NOTE | 2019-03-10 19:03 | EDPHYS ---
Physician Documentation [facility] Name: Vani Beltran Age: 24 yrs Sex: Female : 1995 Arrival Date: 03/10/2019 Time: 17:05 Bed 19 Private MD: ED Physician Quang Sam HPI: 03/10 17:42 This 24 yrs old Female presents to ER via Ambulatory with complaints of Toe jmm Injury. 17:42 The patient presents with an injury, pain. Onset: The symptoms/episode began/occurred jmm acutely, just prior to arrival. This is a 24 year old female with no chronic medical conditions that presents to the ED with complaints of right 5th toe pain. Patient states stubbing her toe against a chair yesterday. Denies other injury. . 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 - Social history:: Smoking status: Patient/guardian denies using tobacco. - Ebola Screening: : Patient negative for fever greater than or equal to 101.5 degrees Fahrenheit, and additional compatible Ebola Virus Disease symptoms Patient denies exposure to infectious person Patient denies travel to an Ebola-affected area in the 21 days before illness onset No symptoms or risks identified at this time. ROS: 17:42 Constitutional: Negative for fever, chills, and weight loss, Cardiovascular: Negative jmm for chest pain, palpitations, and edema, Respiratory: Negative for shortness of breath, cough, wheezing, and pleuritic chest pain. 17:42 MS/extremity: Positive for injury or acute deformity, pain. 17:42 All other systems are negative. Exam: 17:42 Constitutional: This is a well developed, well nourished patient who is awake, alert, jmm and in no acute distress. Head/Face: atraumatic. Eyes: EOMI, no conjunctival erythema appreciated ENT: Moist Mucus Membranes Neck: Trachea midline, Supple Chest/axilla: Normal chest wall appearance and motion. Cardiovascular: Regular rate and rhythm. No edema appreciated Respiratory: Normal respirations, no respiratory distress appreciated Back: Normal ROM 17:42 Musculoskeletal/extremity: ecchymosis noted to the right 5th toe, TTP, < 2 sec cap refill. 17:42 Skin: ecchymosis noted to the right 5th toe. 17:42 Neuro: Orientation: is normal, Mentation: is normal, Memory: is normal. 17:42 Psych: Behavior/mood is pleasant, cooperative. Vital Signs: 17:20 Pulse 87; Resp 17 S; Pulse Ox 100% ; Weight 95.25 kg (R); Height 5 ft. 5 in. (165.10 sg cm) (R); 17:28 BP 113 / 71; sg 19:45 Pulse 88; Resp 18; Pulse Ox 100% ; aj1 17:20 Body Mass Index 34.95 (95.25 kg, 165.10 cm) sg MDM: 17:42 Patient medically screened. [facility] 19:01 Data reviewed: vital signs, nurses notes. Counseling: I had a detailed discussion with jacquelin the patient and/or guardian regarding: the historical points, exam findings, and any diagnostic results supporting the discharge/admit diagnosis, radiology results, the need for outpatient follow up, to return to the emergency department if symptoms worsen or persist or if there are any questions or concerns that arise at home. 19:01 ED course: xray consistent with fracture. patient advised to follow up with podiatry jacquelin for further evaluation. patient understood and agrees with the plan of care. . 03/10 17:44 Order name: Foot Right 3 View XRAY; Complete Time: 19:05 [facility] 03/10 18:51 Order name: [facility]. Order: audelia tape, ortho shoe; Complete Time: 19:44 [facility] Administered Medications: No medications were administered Disposition: 03/10/19 19:02 Discharged to Home. Impression: Displaced unspecified fracture of right lesser toe(s). - Condition is Stable. - Discharge Instructions: Toe Fracture. - Medication Reconciliation Form, Thank You Letter, Antibiotic Education, Prescription Opioid Use form. - Follow up: Juanito Roque DPM; When: 2 - 3 days; Reason: Recheck today's complaints, Continuance of care, Re-evaluation by your physician. Addendum: 03/13/2019 21:16 Co-signature as Attending Physician, Quang Sam MD Available for consultation at p s1 all times. . Signatures: Dispatcher [employer] EDNicole Carey RN RN aj1 Eric Chambers RN RN sg Dada Grant PA PA Quang Conrad MD MD ps1 Corrections: (The following items were deleted from the chart) 03/10 19:48 19:02 03/10/2019 19:02 Discharged to Home. Impression: Displaced unspecified fracture aj1 of right lesser toe(s). Condition is Stable. Forms are Medication Reconciliation Form, Thank You Letter, Antibiotic Education, Prescription Opioid Use. Follow up: Juanito Roque; When: 2 - 3 days; Reason: Recheck today's complaints, Continuance of care, Re-evaluation by your physician. jacquelin
--- NOTE | 2019-03-10 19:03 | RAD REPORT ---
EXAM DESCRIPTION: RAD - Foot Right 3 View - 03/10/2019 6:12 pm CLINICAL HISTORY: Right foot pain status post injury FINDINGS: Nondisplaced fracture involves the fifth middle phalanx. No dislocation seen
--- NOTE | 2019-03-10 19:03 | ER ---
Nurse's Notes [facility] Name: Vani Beltran Age: 24 yrs Sex: Female : 1995 Arrival Date: 03/10/2019 Time: 17:05 Bed 19 Private MD: Diagnosis: Displaced unspecified fracture of right lesser toe(s) Presentation: 03/10 17:19 Presenting complaint: Patient states: I stubbed my right pinky toe this morning, now sg its swollen and painful and bruised. Transition of care: patient was not received from another setting of care. Onset of symptoms was March 10, 2019. Risk Assessment: Do you want to hurt yourself or someone else? Patient reports no desire to harm self or others. Initial Sepsis Screen: Does the patient meet any 2 criteria? No. Patient's initial sepsis screen is negative. Does the patient have a suspected source of infection? No. Patient's initial sepsis screen is negative. Care prior to arrival: None. 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 - Social history:: Smoking status: Patient/guardian denies using tobacco. - Ebola Screening: : Patient negative for fever greater than or equal to 101.5 degrees Fahrenheit, and additional compatible Ebola Virus Disease symptoms Patient denies exposure to infectious person Patient denies travel to an Ebola-affected area in the 21 days before illness onset No symptoms or risks identified at this time. Screenin:15 Abuse screen: Denies threats or abuse. Denies injuries from another. Nutritional aj1 screening: No deficits noted. Tuberculosis screening: No symptoms or risk factors identified. 19:46 Fall Risk None identified. aj1 Assessment: 18:15 General: Appears in no apparent distress. comfortable, Behavior is calm, cooperative, aj1 appropriate for age. Pain: Complains of pain in right fifth toe. Neuro: Level of Consciousness is awake, alert, obeys commands, Oriented to person, place, time, situation. Cardiovascular: Patient's skin is warm and dry. Respiratory: Airway is patent Respiratory effort is even, unlabored, Respiratory pattern is regular, symmetrical. GI: No signs and/or symptoms were reported involving the gastrointestinal system. : No signs and/or symptoms were reported regarding the genitourinary system. EENT: No signs and/or symptoms were reported regarding the EENT system. Derm: Bruising that is bright red, on right fifth toe. Musculoskeletal: Circulation, motion, and sensation intact. 19:15 Reassessment: Patient appears in no apparent distress at this time. No changes from aj previously documented assessment. Patient and/or family updated on plan of care and expected duration. Pain level reassessed. Patient is alert, oriented x 3, equal unlabored respirations, skin warm/dry/pink. Vital Signs: 17:20 Pulse 87; Resp 17 S; Pulse Ox 100% ; Weight 95.25 kg (R); Height 5 ft. 5 in. (165.10 sg cm) (R); 17:28 BP 113 / 71; sg 19:45 Pulse 88; Resp 18; Pulse Ox 100% ; aj1 17:20 Body Mass Index 34.95 (95.25 kg, 165.10 cm) ED Course: 17:05 Patient arrived in ED. as 17:19 Arm band placed on. sg 17:20 Triage completed. 17:20 Dada Grant PA is PHCP. [facility] 17:20 Quang Sam MD is Attending Physician. [facility] 18:12 Foot Right 3 View XRAY In Process Unspecified. EDMS 18:15 Patient has correct armband on for positive identification. Bed in low position. Call [facility] light in reach. Side rails up X 1. pediatric dental assistant on. Pulse ox on. NIBP on. 18:15 No provider procedures requiring assistance completed. aj1 18:39 Nicole Castillo, ANGELI is Primary Nurse. aj1 19:02 Juanito Roque DPM is Referral Physician. [facility] 19:46 Patient did not have IV access during this emergency room visit. aj1 19:47 Ortho shoe applied to right foot. aj1 Administered Medications: No medications were administered Outcome: 19:02 Discharge ordered by . [facility] 19:46 Discharged to home ambulatory. aj1 19:46 Condition: good 19:46 Discharge instructions given to patient, Instructed on discharge instructions, follow up and referral plans. Demonstrated understanding of instructions, follow-up care. 19:48 Patient left the ED. aj1 Signatures: Dispatcher [employer] Nicole Munoz RN RN aj1 Eric Chambers RN RN Dada Mitchell PA PA jmm Martinez, Amelia as
== END 2019-03-10 19:48 | disposition home or self-care (01) ==
LOC: ER 17:04
DX: S92.524A Nondisplaced fracture of middle phalanx of right lesser toe(s), initial encounter for closed fracture (principal); W22.03XA Walked into furniture, initial encounter
CPT/HCPCS: 99284

== ENCOUNTER 2020-01-23 08:38 | Emergency (ER) | payer OTHER, SELFPAY ==
--- OUTSIDE RECORDS SUMMARY | 2020-01-23 08:49 | XMS REPORT ---
:1995 [facility] [address] [place] [address] Dr. Bentley [address] [place] [id number] Care Team Providers Name Role Phone Unavailable Unavailable Unavailable Problems This patient has no known problems. Allergies, Adverse Reactions, Alerts This patient has no known allergies or adverse reactions. Medications This patient has no known medications.
[2020-01-23 09:48] LABS: Absolute Lymphocytes (CBC) 1.9 K/uL (0.7-4.9); Basophils % 0.5 % (0-1.3); Hematocrit 38.3 % (36.0-45.0); Lymphocytes % 23.2 % (15.3-44.8); MPV 7.9 fL (7.6-11.3); RBC Red Blood Cell Count 4.26 M/uL (3.86-4.86)
[2020-01-23 09:56] LABS: BUN Blood Urea Nitrogen 10 mg/dL (7-18); Bicarbonate 28 mmol/L (21-32); Glucose Level 90 mg/dL (74-106); Potassium 4.1 mmol/L (3.5-5.1); Sodium Level 142 mmol/L (136-145)
--- NOTE | 2020-01-23 12:17 | EDPHYS ---
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 - Social history:: Smoking status: Patient denies any tobacco usage or history of. Vital Signs: 09:15 BP 112 / 75; Pulse 84; Resp 14; Temp 97.6(TE); Pulse Ox 98% on R/A; Weight 104.33 kg; ss Height 5 ft. 5 in. (165.10 cm); Pain 0/10; 11:13 BP 105 / 69; Pulse 72; Resp 16 S; Pulse Ox 99% on R/A; Pain 0/10; jl7 09:15 Body Mass Index 38.27 (104.33 kg, 165.10 cm) ss MDM: 12:16 Patient medically screened. kdr 01/22 09:22 Order name: Abo/rh Typing; Complete Time: 11:37 kdr 01/22 09:22 Order name: Basic Metabolic Panel; Complete Time: 11:37 kdr 01/22 09:22 Order name: CBC with Diff; Complete Time: 11:38 kdr 01/22 09:22 Order name: IV Saline Lock; Complete Time: 09:40 kdr 01/22 09:45 Order name: Test, Serum; Complete Time: 11:38 jl7 01/22 10:03 Order name: HCG-Quantitative; Complete Time: 11:38 kdr 01/22 09:22 Order name: Labs collected and sent; Complete Time: 09:40 kdr 01/22 09:22 Order name: NPO; Complete Time: 09:40 kdr Administered Medications: No medications were administered Disposition: 01/23/20 12:16 Discharged to Home. Impression: Abnormal uterine and vaginal bleeding, unspecified. - Condition is Stable. - Discharge Instructions: Abnormal Uterine Bleeding. - Medication Reconciliation Form, Thank You Letter form. - Follow up: Private Physician; When: 2 - 3 days; Reason: If symptoms return, Further diagnostic work-up, Recheck today's complaints, Continuance of care, Re-evaluation by your physician. Follow up: Michael Luna MD; When: 2 - 3 days; Reason: If symptoms return, Further diagnostic work-up, Recheck today's complaints, Continuance of care, Re-evaluation by your physician. - Problem is new. - Symptoms have improved. Addendum: 02/15/2020 07:28 Addendum: CC: Vaginal Bleeding, HPI: The patient recently learned that she was k dr and then last night, she began to have mild vaginal bleeding. She has not had a problem like this before; ROS: Denies fever, she has had mild vaginal bleeding requiring only a couple of pads with a mix of bright and dark blood and not completely soaked. She has had several positive tests but does not know when her LMP was. She has had no care. All other ROS are negative unless o/w noted. EXAM: WDWN WF NAD, Head, neck chest and abdomen are all negative. Vaginal exam deferred since bleeding had appeared to edouard. MDM: based on lack of bleeding and low bHCG, the patient has likely miscarried this . She was o/w stable and without c/o in the ED. She was happy with the care provided and the plan for discharge and follow-up. Signatures: Dispatcher [employer] EDMS Cosme Mancuso MD MD [facility] Huong Casiano RN RN Nova Lewis RN RN jl7 Corrections: (The following items were deleted from the chart) 01/22 12:24 12:16 01/23/2020 12:16 Discharged to Home. Impression: Abnormal uterine and vaginal jl7 bleeding, unspecified. Condition is Stable. Forms are Medication Reconciliation Form, Thank You Letter, Antibiotic Education, Prescription Opioid Use. Follow up: Private Physician; When: 2 - 3 days; Reason: If symptoms return, Further diagnostic work-up, Recheck today's complaints, Continuance of care, Re-evaluation by your physician. Follow up: Michael Luna; When: 2 - 3 days; Reason: If symptoms return, Further diagnostic work-up, Recheck today's complaints, Continuance of care, Re-evaluation by your physician. Problem is new. Symptoms have improved. kdr
--- NOTE | 2020-01-23 12:17 | ER ---
Nurse's Notes [facility] Name: Vani Beltran Age: 24 yrs Sex: Female : 1995 Arrival Date: 01/23/2020 Time: 08:43 Bed 17 Private MD: Diagnosis: Abnormal uterine and vaginal bleeding, unspecified Presentation: 01/22 09:07 Chief complaint: Patient states: Vaginal bleeding that began last night. Denies ss cramping. Pt reports she is unknown weeks , just found out she was last week. Coronavirus screen: The patient has NOT traveled to a country currently being monitored by the [facility] within the last 14 days. Proceed with normal triage procedures. Ebola Screen: Patient denies exposure to infectious person. Patient denies travel to an Ebola-affected area in the 21 days before illness onset. Initial Sepsis Screen: Does the patient meet any 2 criteria? No. Patient's initial sepsis screen is negative. Does the patient have a suspected source of infection? No. Patient's initial sepsis screen is negative. Risk Assessment: Do you want to hurt yourself or someone else? Patient reports no desire to harm self or others. 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 - Social history:: Smoking status: Patient denies any tobacco usage or history of. Screenin:41 Abuse screen: Denies threats or abuse. Denies injuries from another. Nutritional jl7 screening: No deficits noted. Tuberculosis screening: No symptoms or risk factors identified. Fall Risk IV access (20 points). Total Gan Fall Scale indicates No Risk (0-24 pts). Assessment: 09:40 Obstetrical Assessment: Patient reports vaginal bleeding. General: Appears in no jl7 apparent distress. Pain: Denies pain. Neuro: Level of Consciousness is awake, alert, obeys commands, Oriented to person, place, time, situation. Cardiovascular: Patient's skin is warm and dry. Respiratory: Airway is patent Respiratory effort is even, unlabored, Respiratory pattern is regular, symmetrical. : Reports vaginal bleeding that is bright red. Derm: Skin is pink, warm \T\ dry. 11:13 Reassessment: Patient appears in no apparent distress at this time. No changes from jl7 previously documented assessment. Patient and/or family updated on plan of care and expected duration. Pain level reassessed. Patient is alert, oriented x 3, equal unlabored respirations, skin warm/dry/pink. Vital Signs: 09:15 BP 112 / 75; Pulse 84; Resp 14; Temp 97.6(TE); Pulse Ox 98% on R/A; Weight 104.33 kg; ss Height 5 ft. 5 in. (165.10 cm); Pain 0/10; 11:13 BP 105 / 69; Pulse 72; Resp 16 S; Pulse Ox 99% on R/A; Pain 0/10; jl7 09:15 Body Mass Index 38.27 (104.33 kg, 165.10 cm) ED Course: 08:43 Patient arrived in ED. mr 09:08 Triage completed. ss 09:08 Arm band placed on right wrist. 09:15 Nova Lewis, ANGELI is Primary Nurse. jl7 09:20 Cosme Mancuso MD is Attending Physician. kdr 09:41 Patient has correct armband on for positive identification. Bed in low position. Call jl7 light in reach. Side rails up X 1. Pulse ox on. NIBP on. Warm blanket given. 09:41 Initial lab(s) drawn, by ri, sent to lab. Inserted saline lock: 20 gauge in right jl7 antecubital area, using aseptic technique. Blood collected. 12:16 Michael Luna MD is Referral Physician. kdr 12:21 No provider procedures requiring assistance completed. IV discontinued, intact, jl7 bleeding controlled, No redness/swelling at site. Pressure dressing applied. Administered Medications: No medications were administered Outcome: 12:16 Discharge ordered by . kdr 12:21 Discharged to home ambulatory. jl7 12:21 Condition: stable 12:21 Discharge instructions given to patient, Instructed on discharge instructions, follow up and referral plans. Demonstrated understanding of instructions, follow-up care. 12:24 Patient left the ED. jl7 Signatures: Cosme Mancuso MD MD [facility] Maria L Koch Shelby, RN RN ss Nova Lewis, RN RN jl7
[2020-01-23 12:43] VITALS: TEMP 97.6
[2020-01-23 12:44] VITALS: BP 105/69; O2SAT 99
== END 2020-01-23 12:24 | disposition home or self-care (01) ==
LOC: ER 08:38
DX: N93.9 Abnormal uterine and vaginal bleeding, unspecified (principal)
CPT/HCPCS: 36415; 80048; 84702; 84703; 85025; 86900; 86901; 99283

== ENCOUNTER 2020-06-17 04:24 | Emergency (ER) | payer OTHER ==
--- OUTSIDE RECORDS SUMMARY | 2020-06-17 04:27 | XMS REPORT | Continuity of Care Document ---
:1995 Author Organization [facility] t Address [address] [place] [address] Dr. Bentley [address] [place] [id number] Care Team Providers Name Role Phone Unavailable Unavailable Unavailable Problems This patient has no known problems. Allergies, Adverse Reactions, Alerts This patient has no known allergies or adverse reactions. Medications This patient has no known medications. Procedures This patient has no known procedures. Results This patient has no known results.
--- NOTE | 2020-06-17 05:14 | ER ---
Nurse's Notes [facility] Name: Vani Beltran Age: 25 yrs Sex: Female : 1995 Arrival Date: 06/17/2020 Time: 04:27 Bed 19 Private MD: Diagnosis: Cutaneous abscess of left lower limb;Cellulitis and acute lymphangitis of other parts of limb Presentation: 06/17 04:30 Chief complaint: Patient states: I have a boil or something on the back of my leg that jb4 I noticed 3 days ago. I put heat on it and could not get it to pop. Coronavirus screen: Client denies travel out of the [place] in the last 14 days. At this time, the client does not indicate any symptoms associated with coronavirus-19. Ebola Screen: Patient negative for fever greater than or equal to 101.5 degrees Fahrenheit, and additional compatible Ebola Virus Disease symptoms. 04:30 Method Of Arrival: Ambulatory jb4 04:30 Initial Sepsis Screen: Does the patient meet any 2 criteria? No. Patient's initial jb4 sepsis screen is negative. Does the patient have a suspected source of infection? No. Patient's initial sepsis screen is negative. Risk Assessment: Do you want to hurt yourself or someone else? Patient reports no desire to harm self or others. Onset of symptoms was June 13, 2020. Transition of care: patient was not received from another setting of care. 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 - Social history:: Smoking status: Patient reports the use of cigarette tobacco products, smokes one-half pack cigarettes per day, Patient/guardian denies using alcohol, street drugs. - Family history:: not pertinent. Screenin:30 Abuse screen: Denies threats or abuse. Nutritional screening: No deficits noted. jb4 Tuberculosis screening: No symptoms or risk factors identified. Fall Risk None identified. Assessment: 04:30 General: Appears in no apparent distress. uncomfortable, Behavior is calm, cooperative, jb4 appropriate for age. Pain: Complains of pain in left gluteal fold Pain does not radiate. Pain currently is 3 out of 10 on a pain scale. Quality of pain is described as pressure, Pain began 2-3 days ago. Is intermittent, Alleviated by rest. Neuro: Level of Consciousness is awake, alert, obeys commands, Oriented to person, place, time, situation. Cardiovascular: Patient's skin is warm and dry. Respiratory: Airway is patent Respiratory effort is even, unlabored, Respiratory pattern is regular, symmetrical. GI: No signs and/or symptoms were reported involving the gastrointestinal system. : No signs and/or symptoms were reported regarding the genitourinary system. EENT: No signs and/or symptoms were reported regarding the EENT system. Derm: Skin is intact, Skin is pink, warm \T\ dry. Abscess located on left gluteal fold is golf ball sized, has no drainage, is hot to touch, is red, is raised. Musculoskeletal: Circulation, motion, and sensation intact. Range of motion: intact in all extremities. 05:46 Reassessment: Patient appears in no apparent distress at this time. Patient and/or jb4 family updated on plan of care and expected duration. Pain level reassessed. Patient is alert, oriented x 3, equal unlabored respirations, skin warm/dry/pink. Pt verbalized understanding of D/c and follow up instructions. Vital Signs: 04:30 BP 147 / 84; Pulse 86; Resp 16; Temp 97.9(O); Pulse Ox 99% on R/A; Weight 102.06 kg jb4 (R); Height 5 ft. 5 in. (165.10 cm) (R); Pain 3/10; 05:45 BP 118 / 82; Pulse 88; Resp 16; Pulse Ox 99% on R/A; jb4 04:30 Body Mass Index 37.44 (102.06 kg, 165.10 cm) jb4 ED Course: 04:27 Patient arrived in ED. cl3 04:29 Adrián Dai RN is Primary Nurse. jb4 04:29 Alo Roland MD is Attending Physician. monet 04:30 Arm band placed on right wrist. jb4 04:30 Patient has correct armband on for positive identification. Placed in gown. Bed in low jb4 position. Call light in reach. Side rails up X 1. Pulse ox on. NIBP on. 04:48 Triage completed. jb4 05:12 Alan Ortega MD is Referral Physician. [facility] 05:30 Assist provider with I \T\ D: of an abscess on Set up I\T\D tray. Performed by Alo rohan 4 Luan ELAM Culture sent to lab. Wound packed. iodoform gauze, Dressing with Bandaid Patient tolerated well. 05:48 Patient did not have IV access during this emergency room visit. jb4 Administered Medications: 05:30 Drug: Lidocaine-Epinephrine -1%: (1:100,000) 10 ml Volume: 20 ml; Route: Infiltration; jb4 05:45 Follow up: Response: No adverse reaction jb4 05:45 Drug: Doxycycline 200 mg Route: PO; jb4 05:46 Follow up: Response: Medication administered at discharge. jb4 05:45 Drug: Bactrim (160 mg-800 mg (DS) 1 tablet Route: PO; jb4 05:46 Follow up: Response: Medication administered at discharge. jb4 Outcome: 05:13 Discharge ordered by . [facility] 05:48 Discharged to home ambulatory. jb4 05:48 Condition: stable 05:48 Discharge instructions given to patient, Instructed on discharge instructions, follow up and referral plans. no driving heavy equipment, medication usage, Demonstrated understanding of instructions, follow-up care, medications, Prescriptions given X 3. 05:49 Patient left the ED. jb4 Signatures: Alo Roland MD MD cha Bryson, James, RN RN rohan4 Shawanda Caballero cl3
--- NOTE | 2020-06-17 05:14 | EDPHYS ---
Physician Documentation [facility] Name: Vani Beltran Age: 25 yrs Sex: Female : 1995 Arrival Date: 06/17/2020 Time: 04:27 Bed 19 Private MD: JULIO Physician Alo Roland HPI: 06/17 05:08 This 25 yrs old Female presents to ER via Ambulatory with complaints of Cyst, monet Leg Pain. 05:08 The patient presents with pain, swelling, tenderness. The complaints affect the left monet hamstring. Context: The problem was sustained at an unknown site, resulted from an unknown cause. Onset: The symptoms/episode began/occurred 1 week(s) ago. Modifying factors: The symptoms are alleviated by remaining still, the symptoms are aggravated by movement. Associated signs and symptoms: The patient has no apparent associated signs or symptoms. Treatment prior to arrival includes: no previous treatment. Severity of symptoms: At their worst the symptoms were moderate, in the emergency department the symptoms are unchanged. The patient has experienced similar episodes in the past, a few times. 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 - Social history:: Smoking status: Patient reports the use of cigarette tobacco products, smokes one-half pack cigarettes per day, Patient/guardian denies using alcohol, street drugs. - Family history:: not pertinent. ROS: 05:08 Constitutional: Negative for fever, chills, and weight loss, Eyes: Negative for injury, monet pain, redness, and discharge, ENT: Negative for injury, pain, and discharge, Neck: Negative for injury, pain, and swelling, Cardiovascular: Negative for chest pain, palpitations, and edema, Respiratory: Negative for shortness of breath, cough, wheezing, and pleuritic chest pain, Abdomen/GI: Negative for abdominal pain, nausea, vomiting, diarrhea, and constipation, Back: Negative for injury and pain, : Negative for injury, bleeding, discharge, and swelling, Neuro: Negative for headache, weakness, numbness, tingling, and seizure, Psych: Negative for depression, anxiety, suicide ideation, homicidal ideation, and hallucinations, Allergy/Immunology: Negative for hives, rash, and allergies, Endocrine: Negative for neck swelling, polydipsia, polyuria, polyphagia, and marked weight changes, Hematologic/Lymphatic: Negative for swollen nodes, abnormal bleeding, and unusual bruising. 05:08 MS/extremity: Positive for pain, swelling, tenderness, of the left hamstring. Exam: 05:08 Constitutional: This is a well developed, well nourished patient who is awake, alert, monet and in no acute distress. Head/Face: Normocephalic, atraumatic. Eyes: Pupils equal round and reactive to light, extra-ocular motions intact. Lids and lashes normal. Conjunctiva and sclera are non-icteric and not injected. Cornea within normal limits. Periorbital areas with no swelling, redness, or edema. ENT: Nares patent. No nasal discharge, no septal abnormalities noted. Tympanic membranes are normal and external auditory canals are clear. Oropharynx with no redness, swelling, or masses, exudates, or evidence of obstruction, uvula midline. Mucous membranes moist. Neck: Trachea midline, no thyromegaly or masses palpated, and no cervical lymphadenopathy. Supple, full range of motion without nuchal rigidity, or vertebral point tenderness. No Meningismus. Chest/axilla: Normal chest wall appearance and motion. Nontender with no deformity. No lesions are appreciated. Cardiovascular: Regular rate and rhythm with a normal S1 and S2. No gallops, murmurs, or rubs. Normal PMI, no JVD. No pulse deficits. Respiratory: Lungs have equal breath sounds bilaterally, clear to auscultation and percussion. No rales, rhonchi or wheezes noted. No increased work of breathing, no retractions or nasal flaring. Abdomen/GI: Soft, non-tender, with normal bowel sounds. No distension or tympany. No guarding or rebound. No evidence of tenderness throughout. Back: No spinal tenderness. No costovertebral tenderness. Full range of motion. Neuro: Awake and alert, GCS 15, oriented to person, place, time, and situation. Cranial nerves II-XII grossly intact. Motor strength 5/5 in all extremities. Sensory grossly intact. Cerebellar exam normal. Normal gait. Psych: Awake, alert, with orientation to person, place and time. Behavior, mood, and affect are within normal limits. 05:08 Skin: abscess, that is moderate sized, of the left hamstring, with fluctuance, with induration, with surrounding cellulitis, cellulitis, that is minimal, induration, that is moderate is noted. Vital Signs: 04:30 BP 147 / 84; Pulse 86; Resp 16; Temp 97.9(O); Pulse Ox 99% on R/A; Weight 102.06 kg jb4 (R); Height 5 ft. 5 in. (165.10 cm) (R); Pain 3/10; 05:45 BP 118 / 82; Pulse 88; Resp 16; Pulse Ox 99% on R/A; jb4 04:30 Body Mass Index 37.44 (102.06 kg, 165.10 cm) jb4 Procedures: 05:44 I \T\ D: Incision and drainage was performed for an abscess of the left Prepped with [facility] Betadine, Anesthetized with 10 ml's 1% Lidocaine w/ Epi. Incised with #11 blade. Drained moderate amount purulent fluid. Packed with iodoform gauze, Dressing: non-Adherent dressing, the patient tolerated the procedure well. MDM: 04:29 Patient medically screened. [facility] 05:10 Differential diagnosis: abrasion, abscess. Data reviewed: vital signs, nurses notes, [facility] lab test result(s), urinalysis, UPT: negative. Data interpreted: ekg monitor tech: rate is 86 beats/min, rhythm is regular, Pulse oximetry: on room air is 99 %. Counseling: I had a detailed discussion with the patient and/or guardian regarding: the historical points, exam findings, and any diagnostic results supporting the discharge/admit diagnosis, the need for outpatient follow up, for definitive care, a general surgeon. ED course: iicise and drain , packed. 06/17 05:14 Order name: Wound Culture [facility] 06/17 05:37 Order name: Urine --Ancillary (enter results) [facility] 06/17 05:37 Order name: Urine Dipstick--Ancillary (enter results) [facility] 06/17 05:08 Order name: Urine Dipstick-Ancillary (obtain specimen); Complete Time: 05:46 [facility] 06/17 05:08 Order name: Urine Test (obtain specimen); Complete Time: 05:46 [facility] 06/17 05:08 Order name: Dressing - Wound; Complete Time: 05:46 [facility] 06/17 05:08 Order name: Gloves, Sterile; Complete Time: 05:10 [facility] 06/17 05:08 Order name: Setup Suture Tray; Complete Time: 05:10 [facility] Administered Medications: 05:30 Drug: Lidocaine-Epinephrine -1%: (1:100,000) 10 ml Volume: 20 ml; Route: Infiltration; 4 05:45 Follow up: Response: No adverse reaction jb4 05:45 Drug: Doxycycline 200 mg Route: PO; jb4 05:46 Follow up: Response: Medication administered at discharge. 4 05:45 Drug: Bactrim (160 mg-800 mg (DS) 1 tablet Route: PO; 4 05:46 Follow up: Response: Medication administered at discharge. 4 Disposition: 06/17/20 05:13 Discharged to Home. Impression: Cutaneous abscess of left lower limb, Cellulitis and acute lymphangitis of other parts of limb. - Condition is Stable. - Discharge Instructions: Skin Abscess, Incision and Drainage, Skin Abscess, [id number], Cellulitis, Adult, [id number]-da-[id number]. - Prescriptions for Tylenol- Codeine #3 300-30 mg Oral Tablet - take 2 tablets by ORAL route every 6 hours As needed; 20 tablet. Doxycycline Hyclate 100 mg Oral Tablet - take 1 tablet by ORAL route every 12 hours; 20 tablet. Bactrim DS 800- 160 mg Oral Tablet - take 1 tablet by ORAL route every 12 hours for 10 days; 20 tablet. - Medication Reconciliation Form, Thank You Letter, Antibiotic Education, Prescription Opioid Use form. - Work release form (06/17/20 11:12). ss - Follow up: Alan Ortega MD; When: 2 - 3 days; Reason: Wound Recheck, Recheck today's complaints, Re-evaluation by your physician. - Problem is new. - Symptoms have improved. Signatures: Dispatcher [employer] Alo Bacon MD MD cha Bryson, James, RN RN jb4 Huong Casiano RN ss Corrections: (The following items were deleted from the chart) 05:49 05:13 06/17/2020 05:13 Discharged to Home. Impression: Cutaneous abscess of left lower jb4 limb; Cellulitis and acute lymphangitis of other parts of limb. Condition is Stable. Forms are Medication Reconciliation Form, Thank You Letter, Antibiotic Education, Prescription Opioid Use. Follow up: Alan Ortega; When: 2 - 3 days; Reason: Wound Recheck, Recheck today's complaints, Re-evaluation by your physician. Problem is new. Symptoms have improved. monet
[2020-06-17] MEDS ORDERED: LIDOCAINE 1% W/EPI 1:100,000 MDV 50 ML VIAL ONE (05:20)
[2020-06-17] MEDS ORDERED: LIDOCAINE 1% W/EPI 1:100,000 MDV 20 ML VIAL ONE (05:22)
[2020-06-17] MEDS ORDERED: SMZ./TMP. 800/160 MG TABLET ONE (05:22)
[2020-06-17] MEDS ORDERED: DOXYCYCLINE 100 MG CAP PO ONE (05:22)
[2020-06-17 05:53] VITALS: TEMP 97.9; O2SAT 99
[2020-06-17 05:55] VITALS: BP 118/82
[2020-06-17 10:56] LABS: Urine Blood 3+ (NEG); Urine Glucose NEGATIVE (NEG); Urine Protein NEGATIVE (NEG); Urine Specific Gravity 1.025 (1.005-1.030)
== END 2020-06-17 05:49 | disposition home or self-care (01) ==
LOC: ER 04:25
PROC: 0J9P0ZZ Drainage of Left Lower Leg Subcutaneous Tissue and Fascia, Open Approach (ICD-10-PCS; principal; 2020-06-17)
DX: L03.116 Cellulitis of left lower limb (principal); L03.126 Acute lymphangitis of left lower limb; F17.210 Nicotine dependence, cigarettes, uncomplicated
CPT/HCPCS: 81003; 81025; 87070; 87205; 99284

== ENCOUNTER 2020-12-16 12:06 | Emergency (ER) | payer OTHER ==
--- NOTE | 2020-12-16 13:32 | ER ---
Nurse's Notes [facility] Name: Vani Beltran Age: 25 yrs Sex: Female : 1995 Arrival Date: 12/16/2020 Time: 12:10 Bed Waiting Private MD: Diagnosis: Presentation: 12/16 12:33 Chief complaint: Patient states: L groin abscess for 2 days, getting worse. No hb drainage. Site is hard, red, hot to touch. [place] feverish last night,. Coronavirus screen: Client denies travel out of the [place] in the last 14 days. At this time, the client does not indicate any symptoms associated with coronavirus-19. Ebola Screen: Patient denies travel to an Ebola-affected area in the 21 days before illness onset. Initial Sepsis Screen: Does the patient meet any 2 criteria? No. Patient's initial sepsis screen is negative. Does the patient have a suspected source of infection? Yes: Skin breakdown/wound. Risk Assessment: Do you want to hurt yourself or someone else? Patient reports no desire to harm self or others. Onset of symptoms was December 15, 2020. 12:33 Method Of Arrival: Ambulatory hb 12:33 Acuity: TRUMAN 4 hb Historical: - Allergies: 12:33 No Known Drug Allergies; hb - PMHx: 12:33 None; hb - PSHx: 12:33 Tonsillectomy; ; hb - Immunization history:: Flu vaccine is not up to date. - Social history:: Smoking status: Patient denies any tobacco usage or history of. Vital Signs: 12:33 BP 132 / 79; Pulse 89; Resp 16; Temp 98.1; Pulse Ox 98% on R/A; Weight 103.42 kg; hb Height 5 ft. 5 in. (165.10 cm); Pain 9/10; 12:33 Body Mass Index 37.94 (103.42 kg, 165.10 cm) hb ED Course: 12:10 Patient arrived in ED. ds1 12:32 Arm band placed on. hb 12:35 Triage completed. hb Administered Medications: No medications were administered Outcome: 13:31 Patient left the ED. hb Signatures: Stacy Nino ds1 Iris Capellan RN RN hb
[2020-12-16 13:36] VITALS: BP 132/79; TEMP 98.1; O2SAT 98
--- OUTSIDE RECORDS SUMMARY | 2020-12-17 08:51 | XMS REPORT | Continuity of Care Document ---
:1995 Author Organization [facility] t Address [address] [place] [address] Dr. Bentley [address] [place] [id number] Care Team Providers Name Role Phone Unavailable Unavailable Unavailable Problems This patient has no known problems. Allergies, Adverse Reactions, Alerts This patient has no known allergies or adverse reactions. Medications This patient has no known medications. Procedures This patient has no known procedures. Results This patient has no known results.
== END 2020-12-16 13:31 | disposition left against medical advice (07) ==
LOC: ER 12:06
DX: Z02.9 Encounter for administrative examinations, unspecified (principal)
CPT/HCPCS: 99281

== ENCOUNTER 2020-12-17 07:48 | Emergency (ER) | payer OTHER ==
--- NOTE | 2020-12-17 09:24 | RAD REPORT ---
EXAM DESCRIPTION: US - Extremity Nonvascular Limited - 12/17/2020 8:52 am CLINICAL HISTORY: Pain;Swelling COMPARISON: No comparisons FINDINGS: Sonographic evaluation of the inner left groin region was performed in an area of cellulit is. Immediately deep to the skin surface in the area of concern there is a 3 cm complex heterogeneous, pr edominantly hypoechoic collection. In the setting of superficial cellulitis this is most likely an ab scess. There is congestion and edema appearance to the surrounding fatty tissues. IMPRESSION: Approximately 3 centimeter abscess in the superficial fatty tissues left groin at the ar ea of cellulitis.
[2020-12-17] MEDS ORDERED: LIDOCAINE 1% 20 ML MDV ONE (10:08)
--- NOTE | 2020-12-17 10:17 | P.OP ---
Preoperative diagnosis: LEFT Labial Abscess Postoperative diagnosis: LEFT Labial Abscess Primary procedure: Incision and Drainage of LEFT labial abscess Anesthesia: Local 1% with lidocaine Estimated blood loss: <5cc Specimen: cultures sent for aerobic / anaerobic Findings: ~3x4cm left labial abscess Complications: None Implants: 11/10" iodoform packing Transferred to: Other (ER) Condition: Good
--- NOTE | 2020-12-17 10:25 | ER ---
Nurse's Notes [facility] Name: Vani Beltran Age: 25 yrs Sex: Female : 1995 Arrival Date: 12/17/2020 Time: 07:50 Bed 20 Private MD: Diagnosis: Cutaneous abscess of groin-left Presentation: 12/17 07:57 Chief complaint: Patient states: abscess to left groin area X 2 days. Coronavirus iw screen: At this time, the client does not indicate any symptoms associated with coronavirus-19. Ebola Screen: Patient negative for fever greater than or equal to 101.5 degrees Fahrenheit, and additional compatible Ebola Virus Disease symptoms Patient denies exposure to infectious person. Patient denies travel to an Ebola-affected area in the 21 days before illness onset. No symptoms or risks identified at this time. Initial Sepsis Screen: Does the patient meet any 2 criteria? No. Patient's initial sepsis screen is negative. Does the patient have a suspected source of infection? No. Patient's initial sepsis screen is negative. Risk Assessment: Do you want to hurt yourself or someone else? Patient reports no desire to harm self or others. Onset of symptoms was December 15, 2020. 07:57 Method Of Arrival: Ambulatory iw 07:57 Acuity: TRUMAN 4 iw 09:36 Acuity: TRUMAN 3 iw Triage Assessment: 08:00 General: Appears in no apparent distress. uncomfortable, Behavior is calm, cooperative, bp appropriate for age. Pain: Complains of pain in pelvis. EENT: No deficits noted. Neuro: No deficits noted. Cardiovascular: No deficits noted. Respiratory: No deficits noted. GI: No signs and/or symptoms were reported involving the gastrointestinal system. : No signs and/or symptoms were reported regarding the genitourinary system. Derm: Abscess located on pelvis is nickel sized. Musculoskeletal: No deficits noted. Historical: - Allergies: 07:59 No Known Allergies; iw - Home Meds: 07:59 None [Active]; iw - PMHx: 07:59 None; iw - PSHx: 07:59 ; iw - Immunization history:: Adult Immunizations up to date. - Social history:: Smoking status: Patient/guardian denies using tobacco. Screenin:00 Abuse screen: Denies threats or abuse. Denies injuries from another. Nutritional bp screening: No deficits noted. Tuberculosis screening: No symptoms or risk factors identified. Fall Risk None identified. Assessment: 08:00 General: SEE TRIAGE NOTE. bp 09:06 Reassessment: Patient appears in no apparent distress at this time. No changes from sv previously documented assessment. Patient and/or family updated on plan of care and expected duration. Pain level reassessed. Patient is alert, oriented x 3, equal unlabored respirations, skin warm/dry/pink. 09:55 Reassessment: Dr Ortega here at the bedside for the I\T\D. sv 10:42 Reassessment: Patient appears in no apparent distress at this time. Patient and/or sv family updated on plan of care and expected duration. Pain level reassessed. Patient is alert, oriented x 3, equal unlabored respirations, skin warm/dry/pink. Patient states feeling better. Patient states symptoms have improved. Vital Signs: 07:57 BP 111 / 79; Pulse 96; Resp 16; Pulse Ox 98% on R/A; Weight 103.42 kg; Height 5 ft. 5 iw in. (165.10 cm); 07:57 Body Mass Index 37.94 (103.42 kg, 165.10 cm) iw ED Course: 07:50 Patient arrived in ED. as 07:55 Cosme Mancuso MD is Attending Physician. kdr 07:55 Nathaniel Lay, RN is Primary Nurse. bp 07:58 Triage completed. iw 07:59 Arm band placed on. iw 08:01 Patient has correct armband on for positive identification. Bed in low position. Call mh5 light in reach. Pulse ox on. NIBP on. 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 mh5 08:09 Placed in gown. mh5 08:52 US Extrmty Nonvasular Limited In Process Unspecified. EDMS 09:01 Primary Nurse role handed off by Nathaniel Lay, RN sv 09:01 Alvina Roy, RN is Primary Nurse. sv 09:32 ED physician to see patient. sv 10:00 Surgical consent explained by physician, signed by patient. sv 10:05 Assist provider with I \T\ D: of an abscess on left groin Set up I\T\D tray. Performed by Alan Ortega MD Culture sent to lab. Wound packed. iodoform gauze, Dressing with 4X4s, tape Patient tolerated well. Patient did not have IV access during this emergency room visit. 10:23 Alan Ortega MD is Referral Physician. kdr 19:12 Primary Nurse role handed off by Alvina Roy RN sv Administered Medications: No medications were administered Outcome: 10:24 Discharge ordered by . kdr 10:42 Discharged to home ambulatory. sv 10:42 Condition: good 10:42 Condition: improved 10:42 Discharge instructions given to patient, Instructed on discharge instructions, follow up and referral plans. no drinking with medication, no driving heavy equipment, medication usage, wound care, Demonstrated understanding of instructions, follow-up care, medications, wound care, Prescriptions given X 2. 10:43 Patient left the ED. sv Signatures: Dispatcher [employer] EDMS Alvina Roy, RN Cosme Wills MD MD kdr Martinez, Amelia as Williams, Irene, ANGELI [facility] Nathaniel Lay RN RN bp
--- NOTE | 2020-12-17 10:25 | EDPHYS ---
Physician Documentation [facility] Name: Vani Beltran Age: 25 yrs Sex: Female : 1995 Arrival Date: 12/17/2020 Time: 07:50 Bed 20 Private MD: ED Physician Cosme Mancuso HPI: 12/17 18:44 This 25 yrs old Female presents to ER via Ambulatory with complaints of kdr Abscess. 18:45 The patient presents with an abscess of the left femoral area. Description: Not well kdr perceived as there is no tense warm area appreciated. Onset: The symptoms/episode began/occurred gradually, 2 day(s) ago. Possible cause(s): unknown. Associated signs and symptoms: Pertinent positives: Occasional chills but no fever. Modifying factors: the symptoms are alleviated by nothing. Severity of symptoms: At their worst the symptoms were mild, moderate, just prior to arrival, in the emergency department the symptoms are unchanged. The patient has experienced similar episodes in the past, multiple times, The patient has had multiple abscesses in the past. The patient has not recently seen a physician. Historical: - Allergies: 07:59 No Known Allergies; iw - Home Meds: 07:59 None [Active]; iw - PMHx: 07:59 None; iw - PSHx: 07:59 ; iw - Immunization history:: Adult Immunizations up to date. - Social history:: Smoking status: Patient/guardian denies using tobacco. ROS: 18:45 Constitutional: Negative for fever, chills, and weight loss, Eyes: Negative for injury, kdr pain, redness, and discharge, ENT: Negative for injury, pain, and discharge, Neck: Negative for injury, pain, and swelling, Cardiovascular: Negative for chest pain, palpitations, and edema, Respiratory: Negative for shortness of breath, cough, wheezing, and pleuritic chest pain, Abdomen/GI: Negative for abdominal pain, nausea, vomiting, diarrhea, and constipation, Back: Negative for injury and pain, : Negative for injury, bleeding, discharge, and swelling, MS/Extremity: Negative for injury and deformity, Neuro: Negative for headache, weakness, numbness, tingling, and seizure activity. Psych: Negative for depression, anxiety, suicide ideation, homicidal ideation, and hallucinations, Allergy/Immunology: Negative for hives, rash, and allergies, Endocrine: Negative for neck swelling, polydipsia, polyuria, polyphagia, and marked weight changes, Hematologic/Lymphatic: Negative for swollen nodes, abnormal bleeding, and unusual bruising. 18:45 Skin: Positive for abscess, swelling. Exam: 18:45 Constitutional: This is a well developed, well nourished patient who is awake, alert, kdr and in no acute distress. Head/Face: Normocephalic, atraumatic. Eyes: Pupils equal round and reactive to light, extra-ocular motions intact. Lids and lashes normal. Conjunctiva and sclera are non-icteric and not injected. Cornea within normal limits. Periorbital areas with no swelling, redness, or edema. Neck: Trachea midline, no thyromegaly or masses palpated, and no cervical lymphadenopathy. Supple, full range of motion without nuchal rigidity, or vertebral point tenderness. No Meningismus. Chest/axilla: Normal chest wall appearance and motion. Nontender with no deformity. No lesions are appreciated. Cardiovascular: Regular rate and rhythm with a normal S1 and S2. No gallops, murmurs, or rubs. Normal PMI, no JVD. No pulse deficits. Respiratory: Lungs have equal breath sounds bilaterally, clear to auscultation and percussion. No rales, rhonchi or wheezes noted. No increased work of breathing, no retractions or nasal flaring. Abdomen/GI: Soft, non-tender, with normal bowel sounds. No distension or tympany. No guarding or rebound. No evidence of tenderness throughout. Back: No spinal tenderness. No costovertebral tenderness. Full range of motion. MS/ Extremity: Pulses equal, no cyanosis. Neurovascular intact. Full, normal range of motion. Neuro: Awake and alert, GCS 15, oriented to person, place, time, and situation. Cranial nerves II-XII grossly intact. Motor strength 5/5 in all extremities. Sensory grossly intact. Cerebellar exam normal. Normal gait. Psych: Awake, alert, with orientation to person, place and time. Behavior, mood, and affect are within normal limits. 18:45 Skin: cellulitis, that is minimal, on the left femoral area. Vital Signs: 07:57 BP 111 / 79; Pulse 96; Resp 16; Pulse Ox 98% on R/A; Weight 103.42 kg; Height 5 ft. 5 iw in. (165.10 cm); 07:57 Body Mass Index 37.94 (103.42 kg, 165.10 cm) iw MDM: 09:43 Data reviewed: vital signs, nurses notes. ED course: D/w / Jordan - will see patient kdr in about an hour. 10:24 Patient medically screened. kdr 12/17 10:17 Order name: Wound Culture sv 12/17 10:18 Order name: Wound Culture EDMS 12/17 08:11 Order name: US Extrmty Nonvasular Limited kdr 12/17 10:19 Order name: Anaerobic Culture EDMS Administered Medications: No medications were administered Disposition: 12/17/20 10:24 Discharged to Home. Impression: Cutaneous abscess of groin - left. - Condition is Stable. - Discharge Instructions: Incision and Drainage, Skin Abscess, [id number]. - Prescriptions for Tylenol- Codeine #3 300-30 mg Oral Tablet - take 1 tablet by ORAL route every 8 hours As needed; 10 tablet. Bactrim DS 800- 160 mg Oral Tablet - take 1 tablet by ORAL route every 12 hours for 5 days; 10 tablet. - Work release form, Medication Reconciliation Form, Thank You Letter, Antibiotic Education, Prescription Opioid Use form. - Follow up: Private Physician; When: 2 - 3 days; Reason: If symptoms return, Further diagnostic work-up, Recheck today's complaints, Continuance of care, Re-evaluation by your physician. Follow up: Alan Ortega MD; When: 2 - 3 days; Reason: If symptoms return, Further diagnostic work-up, Recheck today's complaints, Continuance of care, Re-evaluation by your physician. - Problem is new. - Symptoms have improved. Signatures: Dispatcher [employer] EDIN Alvina Roy RN RN sv Cosme Mancuso MD MD kdr Radha Sevilla RN RN Corrections: (The following items were deleted from the chart) 10:43 10:24 12/17/2020 10:24 Discharged to Home. Impression: Cutaneous abscess of groin - sv left. Condition is Stable. Forms are Medication Reconciliation Form, Thank You Letter, Antibiotic Education, Prescription Opioid Use. Follow up: Private Physician; When: 2 - 3 days; Reason: If symptoms return, Further diagnostic work-up, Recheck today's complaints, Continuance of care, Re-evaluation by your physician. Follow up: Alan Ortega; When: 2 - 3 days; Reason: If symptoms return, Further diagnostic work-up, Recheck today's complaints, Continuance of care, Re-evaluation by your physician. Problem is new. Symptoms have improved. kdr
[2020-12-17 10:47] VITALS: BP 111/79; O2SAT 98
--- NOTE | 2020-12-17 10:48 | OP ---
Date of Procedure: 12/17/2020 Surgeon: Alan Ortega MD, Preoperative Diagnosis: Left labial abscess. Postoperative Diagnosis: Left labial abscess. Procedure Performed: Incision and drainage of left labial abscess. Anesthesia: Local 1% lidocaine with epinephrine. Estimated Blood Loss: Less than 5 cc. Specimen: Cultures sent for both aerobic, anaerobic speciation. Findings: A 3 cm x 4 cm left labial abscess. Complications: None. Implants: A 1/4th inch iodoform packing. Disposition: The patient remained in the ER in good condition throughout the procedure. Procedure In Detail: After informed consent was obtained, the patient was prepped and draped in the usual sterile fashion. After adequate anesthesia was achieved, a linear incision was made over the l eft labia approximately 2 cm in size down to subcutaneous tissues. Immediately encountered was a lar ge abscess material. This was cultured for both aerobic and anaerobic speciation at this time. It w as digitized to break up some minimal loculations at this point and then irrigated copiously until co mpletely clear. At this point, the wound was then packed with 1/4th inch iodoform packing. A steril e dressing was placed over top. The patient tolerated the procedure well without any evidence of com plication, remained in the ER room in good condition throughout the procedure. All counts were correct at the end of the case. LEYDI/NIKKI Voice ID: [id number] Report ID: [id number]
--- NOTE | 2020-12-17 10:53 | CON ---
Date of Consultation: 12/17/2020 Brief History Of Present Illness: The patient is a 25-year-old female, who presents to the hospital with approximately 3 to 4-day history of pain in the left groin area. She states that it got signifi cantly worse over the past few days. She has had no drainage, but she has had similar episodes befor e in the past with respect to abscesses, which required drainage in the emergency room on a previous occasion. It was not this area; however, it was on the lower extremity. At this point, she has had no systemic complaints, fever, chills, nausea, or other exposures she is aware of. No sick contacts. No recent travel. No COVID exposure by her description. She continued to have tenderness in the l eft labial area. She is currently menstruating as well. Past Medical History: Negative. Past Surgical History: Negative. Social History: She denies smoking, alcohol, recreational drug use. 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 Allergies: NONE. Medications: None. Review of Systems: Ten-point review of systems other than HPI, denies. Physical Examination: General: At the time of my examination, she is awake, alert, oriented. Psychiatric: Appropriate, conversive. HEENT: Normocephalic. Sclerae anicteric. Mucous membranes are moist. Oropharynx clear. Neck: Supple. No JVD. Chest: Normal expansion and excursion. Cardiovascular: Regular rate and rhythm. Pulmonary: Clear to auscultation bilaterally. Pelvic: Focused examination of the pelvic area shows a left 3 cm abscess in the left labial area, fl uctuant, tender to palpation with some cellulitis over the top. Extremities: No clubbing, cyanosis, edema. Skin: Warm and dry. Diagnostic Studies: She had an ultrasound, which confirmed an approximately 3 cm abscess, superficia l fatty tissue in the left groin at the area of cellulitis. Assessment And Plan: This is a 25-year-old female, who comes in with a left groin/labial abscess. 1.IV fluid hydration. 2.Antibiotic treatment. 3.I have explained the risks, benefits, and alternatives of incision and drainage of this wound with ongoing wound care with daily packing including, but not limited to bleeding, infection, damage to s urrounding tissues, need for further operation and procedure. The patient agrees to proceed as indic ated. LEYDI/NIKKI Voice ID: [id number] Report ID: [id number]
--- OUTSIDE RECORDS SUMMARY | 2020-12-17 13:13 | XMS REPORT | Continuity of Care Document ---
:1995 Author Organization [facility] t Address [address] [place] [address] Dr. Bentley [address] [place] [id number] Care Team Providers Name Role Phone Unavailable Unavailable Unavailable Problems This patient has no known problems. Allergies, Adverse Reactions, Alerts This patient has no known allergies or adverse reactions. Medications This patient has no known medications. Procedures This patient has no known procedures. Results This patient has no known results.
== END 2020-12-17 10:43 | disposition home or self-care (01) ==
LOC: ER 07:48
PROC: 0U9MXZZ Drainage of Vulva, External Approach (ICD-10-PCS; principal; 2020-12-17)
DX: N76.4 Abscess of vulva (principal)
CPT/HCPCS: 76882; 87070; 87075; 87205; 99284

== ENCOUNTER → 2023-11-27 | Emergency (ER) | payer OTHER, SELFPAY ==
[~2023-11-27] MED LIST: LIDOCAINE 1% MPF 5 ML VIAL ONE; ONDANSETRON 4 MG (ODT) TAB ONE; TDAP (DIPHTH,PERTUSS(ACELL),TET VAC) 0.5 ML VIAL IMVAC ONE
--- NOTE | 2023-11-27 18:38 | ER ---
Nurse's Notes [facility] Name: Vani Trujillo Age: 28 yrs Sex: Female : 1995 Arrival Date: 11/27/2023 Time: 17:56 Bed 17 Private MD: Diagnosis: Laceration without foreign body of left hand Presentation: 11/27 18:01 Chief complaint: Patient states: was cutting a lovelock with a large knife and cut left ko1 palm. Coronavirus screen: At this time, the client does not indicate any symptoms associated with coronavirus-19. Ebola Screen: No symptoms or risks identified at this time. Complicating Factors: There are no complicating factors for this patient. Initial Sepsis Screen: Does the patient meet any 2 criteria? No. Patient's initial sepsis screen is negative. Does the patient have a suspected source of infection? No. Patient's initial sepsis screen is negative. Risk Assessment: Do you want to hurt yourself or someone else? Patient reports no desire to harm self or others. Onset of symptoms was November 27, 2023. 18:01 Method Of Arrival: Ambulatory ko1 18:01 Acuity: TRUMAN 3 ko1 Triage Assessment: 18:03 General: Appears in no apparent distress. Behavior is calm, cooperative, appropriate ko1 for age. Pain: Complains of pain in palm of left hand. Injury Description: Laceration sustained to palm of left hand is bleeding moderately, was sustained less than 30 minutes ago. is bleeding moderately. Historical: - Allergies: 18:03 No Known Allergies; ko1 - PMHx: 18:03 None; ko1 - PSHx: 18:03 section; Repair of inguinal hernia; ko1 - Immunization history:: Last tetanus immunization: > 10 years ago. - Social history:: Smoking status: Patient denies any tobacco usage or history of. Screenin:25 [facility] ED Fall Risk Assessment (Adult) History of falling in the last 3 months, cm10 including since admission No falls in past 3 months (0 pts) Confusion or Disorientation No (0 pts) Intoxicated or Sedated No (0 pts) Impaired Gait No (0 pts) Mobility Assist Device Used No (0 pt) Altered Elimination No (0 pt) Score/Fall Risk Level 0 - 2 = Low Risk Oriented to surroundings, Maintained a safe environment, Hourly rounding (assess needs \T\ fall precautionary measures) done. Abuse screen: Denies threats or abuse. Denies injuries from another. Nutritional screening: No deficits noted. Tuberculosis screening: No symptoms or risk factors identified. Assessment: 18:25 General: Appears in no apparent distress. comfortable, Behavior is calm, cooperative. cm10 Pain: Complains of pain in palm of left hand. Neuro: No deficits noted. Level of Consciousness is awake, alert, obeys commands, Oriented to person, place, time, situation. Cardiovascular: No deficits noted. Patient's skin is warm and dry. Respiratory: No deficits noted. Airway is patent Respiratory effort is even, unlabored, Respiratory pattern is regular, symmetrical. GI: No deficits noted. No signs and/or symptoms were reported involving the gastrointestinal system. : No deficits noted. No signs and/or symptoms were reported regarding the genitourinary system. EENT: No deficits noted. No signs and/or symptoms were reported regarding the EENT system. Derm: No deficits noted. No signs and/or symptoms reported regarding the dermatologic system. Wound noted palm of left hand. Musculoskeletal: No deficits noted. Range of motion: intact in all extremities. Injury Description: Laceration sustained to palm of left hand is clean, not bleeding. Vital Signs: 18:03 BP 139 / 83; Pulse 86; Resp 15; Temp 97.9; Pulse Ox 100% ; ko1 ED Course: 17:59 Patient arrived in ED. mg5 18:02 [facility]ph[facility] kb 18:02 Philip Andersen MD is Attending Physician. kb 18:03 Triage completed. ko1 18:03 Arm band placed on right wrist. Patient placed in an exam room, on a stretcher, on ko1 pulse oximetry. 18:25 Patient has correct armband on for positive identification. Provided Education on: Er cm10 process and procedures. 18:25 No provider procedures requiring assistance completed. Patient did not have IV access cm10 during this emergency room visit. Administered Medications: 18:24 CANCELLED (Duplicate Order): tetanus-diphtheria toxoidadult 0.5 ml IM once; Provide cm10 Vaccine Information Statement (VIS). 18:25 Drug: Lidocaine Infiltration (1 %) 1 vials 5 ml Infiltration once; to bedside {Note: cm10 given by provider .} Volume: 5 ml; Route: Infiltration; 18:25 Drug: Boostrix Tdap IM 0.5 ml IM once; as a single dose Route: IM; Site: left deltoid; cm10 18:25 Follow up: Response: (VIS) Vaccine information sheet provided today. Questions and/or cm10 concerns addressed. VIS edition date: Jun 12, 2021.; No adverse reaction 18:45 Drug: Ondansetron Oral Disintegrating Tablet Oral Disintegrating Tablet 4 mg PO once cm10 Route: PO; 18:45 Follow up: Response: Medication administered at discharge. cm10 Medication: 18:35 Vaccine Information Statement (VIS) provided today. Questions and/or concerns cm10 addressed. VIS edition date: June 12, 2021. Outcome: 18:38 Discharge ordered by . kb 18:47 Discharged to home ambulatory, cm10 18:47 Condition: good 18:47 Discharge instructions given to patient, Instructed on discharge instructions, follow up and referral plans. wound care, Demonstrated understanding of instructions, follow-up care, wound care, 18:47 Patient left the ED. cm10 Signatures: Stephani Jones, HYACINTH-C PUBLIC HE[employer] REGISTRAR-CkMeghan Galan, RN RN ko1 Anny Denny RN RN cm10 Lady Snyder mg5 Corrections: (The following items were deleted from the chart) 18:04 18:03 PSHx: None; milan yates
--- NOTE | 2023-11-27 18:38 | EDPHYS ---
Physician Documentation [facility] Name: Vani Trujillo Age: 28 yrs Sex: Female : 1995 Arrival Date: 11/27/2023 Time: 17:56 Bed 17 Private MD: ED Physician Philip Andersen HPI: 11/27 18:37 This 28 yrs old Female presents to ER via Ambulatory with complaints of Laceration To kb Hand. 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 Historical: - Allergies: 18:03 No Known Allergies; ko1 - PMHx: 18:03 None; ko1 - PSHx: 18:03 section; Repair of inguinal hernia; ko1 - Immunization history:: Last tetanus immunization: > 10 years ago. - Social history:: Smoking status: Patient denies any tobacco usage or history of. ROS: 18:35 Constitutional: Negative for fever, chills, and weight loss, kb 18:35 Skin: Positive for laceration(s), of the palm of left hand, 18:35 All other systems are negative, Exam: 18:35 Constitutional: This is a well developed, well nourished patient who is awake, alert, kb and in no acute distress. Head/Face: Normocephalic, atraumatic. ENT: Moist Mucous membranes Respiratory: Respirations even and unlabored. No increased work of breathing. Talking in full sentences MS/ Extremity: Pulses equal, no cyanosis. Neurovascular intact. Full, normal range of motion. Neuro: Awake and alert, GCS 15, oriented to person, place, time, and situation. Moves all extremities. Normal gait. 18:35 Skin: injury, laceration(s), the wound is approximately 2 cm(s), of the palm of left hand, that can be described as clean, no foreign body, linear, with mild bleeding, Vital Signs: 18:03 BP 139 / 83; Pulse 86; Resp 15; Temp 97.9; Pulse Ox 100% ; ko1 Laceration: 18:35 Wound Repair of 2cm ( 0.8in ) subcutaneous laceration to palm of left hand. Linear kb shaped.. Distal neuro/vascular/tendon intact. Anesthesia: Local anesthetic administered with 3 mls of 1% lidocaine. Wound prep: Extensive cleansing with hibiclenz by me, Wound irrigation with saline by me. Skin closed with 4 5-0 Prolene using simple sutures and sterile technique. Patient tolerated well. MDM: 18:02 Patient medically screened. kb 18:35 Differential diagnosis: superficial laceration, tendon injury, vascular injury. Data kb reviewed: vital signs, nurses notes. Counseling: I had a detailed discussion with the patient and/or guardian regarding the historical points, exam findings, and any diagnostic results supporting the discharge/admit diagnosis, the need for outpatient follow up, a family practitioner, to return to the emergency department if symptoms worsen or persist or if there are any questions or concerns that arise at home. 11/27 18:08 Order name: Dressing - Wound; Complete Time: 18:47 kb 11/27 18:08 Order name: Gloves, Sterile; Complete Time: 18:25 kb 11/27 18:08 Order name: Prolene, Sutures; Complete Time: 18:25 kb 11/27 18:08 Order name: Setup Suture Tray; Complete Time: 18:25 kb Administered Medications: 18:24 CANCELLED (Duplicate Order): tetanus-diphtheria toxoidadult 0.5 ml IM once; Provide cm10 Vaccine Information Statement (VIS). 18:25 Drug: Lidocaine Infiltration (1 %) 1 vials 5 ml Infiltration once; to bedside {Note: cm10 given by provider .} Volume: 5 ml; Route: Infiltration; 18:25 Drug: Boostrix Tdap IM 0.5 ml IM once; as a single dose Route: IM; Site: left deltoid; cm10 18:25 Follow up: Response: (VIS) Vaccine information sheet provided today. Questions and/or cm10 concerns addressed. VIS edition date: Jun 12, 2021.; No adverse reaction 18:45 Drug: Ondansetron Oral Disintegrating Tablet Oral Disintegrating Tablet 4 mg PO once cm10 Route: PO; 18:45 Follow up: Response: Medication administered at discharge. cm10 Disposition: 18:53 Co-signature as Attending Physician, Philip Andersen MD I reviewed the patient's care rn provided by the Advanced Practice Provider and agree with the diagnosis and treatment plan. Disposition Summary: 11/27/23 18:38 Discharge Ordered Notes: Location: Home kb Condition: Stable kb Diagnosis - Laceration without foreign body of left hand kb Followup: kb - With: Emergency Department - When: As needed - Reason: Worsening of condition Followup: kb - With: Private Physician - When: 2 - 3 days - Reason: Recheck today's complaints, Continuance of care, Re-evaluation by your physician Discharge Instructions: - Discharge Summary Sheet kb - Laceration Care, Adult, Nnlp-md-[id number] kb Forms: - Medication Reconciliation Form kb - Thank You Letter kb - Antibiotic Education kb - Prescription Opioid Use kb - Patient Portal Instructions kb - Leadership Thank You Letter kb Signatures: Stephani Jones FNP-C HYACINTH-Philip Phelan MD MD rn Meghan Acosta RN RN ko1 Anny Denny, RN RN cm10 Corrections: (The following items were deleted from the chart) 18:04 18:03 PSHx: None; ko1 ko1 18:25 18:08 Tetanus-Diphtheria Toxoid IM Adult 0.5 ml IM once; Provide Vaccine Information cm10 Statement (VIS). ordered. kb
[2023-11-27 20:22] VITALS: BP 139/83; TEMP 97.9; O2SAT 100
== END ==
LOC: ER 17:56
PROC: 0HQGXZZ Repair Left Hand Skin, External Approach (ICD-10-PCS; principal; 2023-11-27)
DX: S61.412A Laceration without foreign body of left hand, initial encounter (principal)
CPT/HCPCS: 96372; 99284; J2001; Q0162

== ENCOUNTER 2024-06-29 21:05 | Emergency (ER) | payer OTHER ==
[2024-06-29] MEDS ORDERED: DIPHENHYDRAMINE 50 MG/ML VIAL ONE (21:48)
[2024-06-29] MEDS ORDERED: KETOROLAC 30 MG/ML INJ ONE (21:48)
[2024-06-29] MEDS ORDERED: METOCLOPRAMIDE 10 MG/2mL INJ ONE (21:49)
[2024-06-29] MEDS ORDERED: NA CHLORIDE 0.9% 1,000 ML ONE (21:49)
[2024-06-29 22:00] LABS: Absolute Basophils 0.1 K/uL (0-0.5); Absolute Lymphocytes (CBC) 1.8 K/uL (0.7-4.9); Absolute Monocytes 0.5 K/uL (0.1-1.3); Absolute Neutrophil 5.4 K/uL (1.8-8.0); Basophils % 0.9 % (0-1.3); Hemoglobin 11.7 g/dL (12.0-15.0); Lymphocytes % 23.2 % (15.3-44.8); MCHC 32.5 g/dL (32.0-36.0); MCV 80.2 fL (80-100); MPV 7.3 fL (7.6-11.3); Monocytes % 6.4 % (3.3-12.3); Neutrophils % 69.5 % (41.7-73.7); Platelets 356 thou/uL (152-406); RBC Red Blood Cell Count 4.49 M/uL (3.86-4.86); Red Cell Distribution Width 18.4 % (12.1-15.2)
[2024-06-29 22:16] LABS: SARS-CoV-2 Antigen CONTROL BLUE LINE VIS/BG OK; SARS-CoV-2 Antigen Rapid Res Negative (Negative)
[2024-06-29 22:22] LABS: Specific Gravity 1.024 (1.005-1.030)
--- NOTE | 2024-06-29 22:25 | RAD REPORT ---
EXAM DESCRIPTION: RAD - Chest Single View - 06/29/2024 10:13 pm CLINICAL HISTORY: Congestion;Cough Chest pain. COMPARISON: <Comparisons> FINDINGS: Portable technique limits examination quality. Mildly prominent interstitial lung markings could represent bronchitis. No focal consolidation typica l of pneumonia is seen. The heart is normal in size. No displaced fractures.
--- NOTE | 2024-06-29 22:27 | RAD REPORT ---
EXAM DESCRIPTION: CT - Head Brain Wo Cont - 06/29/2024 10:20 pm CLINICAL HISTORY: headache, chiari malformation COMPARISON: <Comparisons> TECHNIQUE: All CT scans are performed using dose optimization technique as appropriate and may inclu de automated exposure control or mA/KV adjustment according to patient size. FINDINGS: No intracranial hemorrhage, hydrocephalus or extra-axial fluid collection.No areas of brai n edema or evidence of midline shift. Soft tissue fullness of the foramen magnum noted. The paranasal sinuses and mastoids are clear. The calvarium is intact. IMPRESSION: No acute intracranial abnormality.
[2024-06-29 22:48] LABS: Potassium 3.7 mEq/L (3.5-4.9)
[2024-06-29 22:49] LABS: Anion Gap 12.7 mEq/L (5.0-15.0); Magnesium 2.1 mg/dL (1.6-2.4)
[2024-06-29 23:10] LABS: Specific Gravity 1.024 (1.005-1.030); Sqamous Epithelial <5 /HPF (None Seen); Urine Bacteria None Seen /HPF (<20); Urine Bilirubin NEGATIVE (Negative); Urine Blood 1+ (Negative); Urine Clarity Turbid (Clear); Urine Color Yellow (Yellow); Urine Culture Reflex Order NOT NEEDED; Urine Glucose NEGATIVE (Negative); Urine Ketones NEGATIVE (Negative); Urine Micro Reflex YN NO BILL MICROSCOPIC; Urine Mucus 2+ /HPF (None Seen); Urine Nitrite NEGATIVE (Negative); Urine Protein TRACE (Negative); Urine RBC <5 /HPF (None Seen); Urine Urobilinogen Normal (Normal); Urine WBC <5 /HPF (<5); Urine pH 5.5 (5.0-7.0)
[2024-06-29] MEDS ORDERED: NA CHLORIDE 0.9% 50 ML ONE (23:12)
[2024-06-29] MEDS ORDERED: AZITHROMYCIN 500 MG INJ IVPB ONE (23:12)
[2024-06-29] MEDS ORDERED: CEFTRIAXONE 1000 MG/VIAL ONE (23:12)
[2024-06-29] MEDS ORDERED: NA CHLORIDE 0.9% 250 ML ONE (23:12)
--- NOTE | 2024-06-29 23:45 | EDPHYS ---
Physician Documentation [facility] Name: Vani Trujillo Age: 29 yrs Sex: Female : 1995 Arrival Date: 06/29/2024 Time: 21:05 Bed 15 Private MD: ED Physician Gordy Jennings HPI: 06/29 23:19 This 29 yrs old Female presents to ER via Ambulatory with complaints of headache, cough.sb4 23:19 Patient states that she has had a persistent cough for about 5 days now. She was seen sb4 at urgent care initially, diagnosed with bronchitis, and discharged with steroids, albuterol, and cough syrup. She states that the cough has persisted and it is making her head hurt a lot and additionally makes her arms go numb. She is concerned because she was diagnosed with a Chiari malformation last year. 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 - Infectious Disease History:: Denies. - Social history:: Smoking status: Patient denies any tobacco usage or history of. Patient/guardian denies using alcohol. ROS: 23:19 Constitutional: Negative for fever, chills, and weight loss, sb4 23:19 Respiratory: Positive for cough, "sounds productive", 23:19 Neuro: Positive for headache, 23:19 All other systems are negative, Exam: 23:19 Head/Face: Normocephalic, atraumatic. Eyes: Extra-ocular motions intact. Periorbital sb4 areas with no swelling, redness, or edema. ENT: Mucous membranes moist. Cardiovascular: Regular rate and rhythm with a normal S1 and S2. Abdomen/GI: Soft, non-tender, no distension. Skin: Warm, dry with normal turgor. Normal color with no rashes, no lesions, and no evidence of cellulitis. MS/ Extremity: Pulses equal, no cyanosis. Neurovascular intact. Full, normal range of motion. Neuro: Awake and alert, GCS 15, oriented to person, place, time, and situation. Motor strength 5/5 in all extremities. Sensory grossly intact. 23:19 Constitutional: The patient appears alert, awake, anxious, uncomfortable, Tearful 23:19 Respiratory: the patient does not display signs of respiratory distress, Respirations: normal, Breath sounds: bronchial sounds, Vital Signs: 21:23 BP 142 / 98; Pulse 72; Resp 20; Temp 99.3(O); Pulse Ox 99% on R/A; Weight 115.67 kg; tm6 Height 5 ft. 5 in. ; Pain 4/10; 06/30 00:10 BP 132 / 85; Pulse 89; Resp 15; Temp 98.5; Pulse Ox 100% ; Pain 2/10; jm12 06/29 21:23 Body Mass Index 42.43 (115.67 kg, 165.1 cm) [facility] 06/29 21:23 Pain Scale: Adult [facility] 06/30 00:10 Pain Scale: Adult [facility] MDM: 06/29 21:20 Patient medically screened. sb4 23:41 Data reviewed: vital signs, nurses notes, lab test result(s), radiologic studies, I sb4 have discussed the patient's presentation/case with the attending Emergency Department Physician; and as a result, I will discharge patient. Counseling: I had a detailed discussion with the patient and/or guardian regarding the historical points, exam findings, and any diagnostic results supporting the discharge/admit diagnosis, lab results, radiology results, to return to the emergency department if symptoms worsen or persist or if there are any questions or concerns that arise at home. ED course: UPT resulted positive after head CT, chest xray, and ketoralac. patient previously denied any chance of , LMP about 3 weeks ago. counseled patient that there is a low risk the medication and radiation will harm the fetus. she will follow up with OBGYN. 06/29 21:34 Order name: CBC with Diff; Complete Time: 22:20 4 06/29 21:34 Order name: BMP; Complete Time: 23:11 4 06/29 21:34 Order name: Magnesium; Complete Time: 23:11 4 06/29 21:34 Order name: SARS RAPID; Complete Time: 22:16 4 06/29 21:34 Order name: Flu; Complete Time: 22:24 4 06/29 21:34 Order name: Test, Urine; Complete Time: 22:24 sb4 06/29 22:52 Order name: UAM; Complete Time: 23:11 sb4 06/29 22:52 Order name: Add On-Lab; Complete Time: 23:38 sb4 06/29 22:57 Order name: HCG, Quantitative; Complete Time: 23:11 EDMS 06/29 21:34 Order name: Head Brain Wo Cont CT; Complete Time: 22:28 sb4 06/29 21:34 Order name: Chest Single View XRAY; Complete Time: 22:26 sb4 06/29 21:34 Order name: IV Start; Complete Time: 21:55 sb4 Administered Medications: 22:02 Drug: metoCLOPramide IVP 10 mg IVP once; over 1 to 2 minutes Route: IVP; Site: left [address]; 23:53 Follow up: Response: Marked relief of symptoms; Pain is decreased [facility] 22:02 Drug: diphenhydrAMINE IVP 25 mg IVP once Route: IVP; Site: left antecubital; [facility] 23:52 Follow up: Response: Marked relief of symptoms; Pain is decreased [facility] 22:02 Drug: NS 0.9% IV 1000 ml IV at 1 bolus Per protocol; 1000 mL bolus Route: IV; Rate: 1 jm12 bolus; Site: left antecubital; 22:03 Drug: Ketorolac IVP 30 mg IVP once Route: IVP; Site: left antecubital; [facility] 23:53 Follow up: Response: Adverse reaction, Physician notified; Pain is decreased [facility] 23:25 Drug: Rocephin IV 1 grams IV at calculated rate once; Given slow IV push per pharmacy [facility] instructions Route: IV; Rate: calculated rate; Site: left antecubital; 23:52 Follow up: IV Status: Completed infusion [facility] 23:52 Drug: AZITHromycin IVPB 500 mg IVPB once over 1 hrs; (mix in 250 mL NS) Route: IVPB; jm12 Infused Over: 1 hrs; Site: left antecubital; 06/30 00:10 Follow up: IV Status: Completed infusion 12 Disposition: 06:55 Co-signature as Attending Physician, Gordy Jennings MD I agree with the assessment sp4 and plan of care. I reviewed the patient's care provided by the Advanced Practice Provider and agree with the diagnosis and treatment plan. Disposition Summary: 06/29/24 23:44 Discharge Ordered Notes: Location: Home sb4 Problem: new sb4 Symptoms: have improved sb4 Condition: Stable sb4 Diagnosis - Pneumonia, unspecified organism sb4 - Positive test sb4 Followup: sb4 - With: Emergency Department - When: As needed - Reason: Fever > 102 F, Trouble breathing, Worsening of condition Discharge Instructions: - Discharge Summary Sheet sb4 - Community-Acquired Pneumonia, Adult sb4 - First Trimester of , [id number]-[id number] sb4 - Chiari Malformation sb4 Forms: - Antibiotic Education sb4 - Patient Portal Instructions sb4 - Leadership Thank You Letter sb4 Prescriptions: - azithromycin 250 mg Oral tablet - take 1 tablet ORAL route daily for 4 days start on day 2 of therapy; 1 tablet; sb4 Refills: 0, Product Selection Permitted - Amoxicillin 875 mg Oral tablet - take 1 tablet ORAL route every 12 hours for 7 days; 14 tablet; Refills: 0, sb4 Product Selection Permitted Signatures: Dispatcher [employer] Rebecca Louis, PA-C PA-C sb4 Gordy Jennings MD MD sp4 Svia Storm RN RN tm6 Leyla Fuller RN RN jm12
--- NOTE | 2024-06-29 23:45 | ER ---
Nurse's Notes [facility] Name: Vani Trujillo Age: 29 yrs Sex: Female : 1995 Arrival Date: 06/29/2024 Time: 21:05 Bed 15 Private MD: Diagnosis: Pneumonia, unspecified organism;Positive test Presentation: 06/29 21:24 Chief complaint: Patient states: arnold dean, was diagnosed with bronchitis on tm6 Tuesday. When she gets coughing fits she gets excruciating pain in head and losing feeling in both arms. Went to urgent care, they told her to go to ER. Coronavirus screen: Vaccine status: Patient reports being unvaccinated. Ebola Screen: Patient negative for fever greater than or equal to 101.5 degrees Fahrenheit, and additional compatible Ebola Virus Disease symptoms Patient denies exposure to infectious person. Patient denies travel to an Ebola-affected area in the 21 days before illness onset. No symptoms or risks identified at this time. Initial Sepsis Screen: Does the patient meet any 2 criteria? No. Patient's initial sepsis screen is negative. Does the patient have a suspected source of infection? No. Patient's initial sepsis screen is negative. Risk Assessment: Do you want to hurt yourself or someone else? Patient reports no desire to harm self or others. Onset of symptoms was June 24, 2024. 21:24 Method Of Arrival: Ambulatory tm6 21:24 Acuity: TRUMAN 3 tm6 Triage Assessment: 21:26 General: Appears uncomfortable, Behavior is calm, cooperative. Pain: Complains of pain tm6 in face Pain currently is 4 out of 10 on a pain scale. Quality of pain is described as aching, Pain began 2-3 days ago. EENT: No signs and/or symptoms were reported regarding the EENT system. Neuro: Level of Consciousness is awake, alert, obeys commands, Oriented to person, place, time, situation, Reports headache. Cardiovascular: Patient's skin is warm and dry. Respiratory: Reports cough that is non-productive, persistent pain with cough since yesterday Airway is patent Respiratory effort is even, unlabored, Respiratory pattern is regular, symmetrical, Sputum is green yellow. GI: No signs and/or symptoms were reported involving the gastrointestinal system. Abdomen is round. : No signs and/or symptoms were reported regarding the genitourinary system. Derm: No signs and/or symptoms reported regarding the dermatologic system. Musculoskeletal: No signs and/or symptoms reported regarding the musculoskeletal system. BUNDLE TIER: 21:23 LMP 06/01/2024, unknown tm6 Historical: - Allergies: : No Known Allergies; tm6 - PMHx: :26 Chiari malformation; Hypertensive disorder; tm6 - PSHx: 21:26 section; Repair of inguinal hernia; Tonsillectomy; Adenoid excision; tm6 - Immunization history:: Client reports having NOT received the Covid vaccine. - Infectious Disease History:: Denies. - Social history:: Smoking status: Patient denies any tobacco usage or history of. Patient/guardian denies using alcohol. Screenin:55 [facility] ED Fall Risk Assessment (Adult) History of falling in the last 3 months, tm6 including since admission No falls in past 3 months (0 pts) Confusion or Disorientation No (0 pts) Intoxicated or Sedated No (0 pts) Impaired Gait No (0 pts) Mobility Assist Device Used No (0 pt) Altered Elimination No (0 pt) Score/Fall Risk Level 0 - 2 = Low Risk Oriented to surroundings, Maintained a safe environment, Educated pt \T\ family on fall prevention, incl call for assistance when getting out of bed. Abuse screen: Denies threats or abuse. Denies injuries from another. Nutritional screening: No deficits noted. Tuberculosis screening: No symptoms or risk factors identified. Assessment: 23:30 General: Appears in no apparent distress. Behavior is calm, cooperative. Pain: jm12 Complains of pain in face and scalp. Neuro: No deficits noted. Neuro: Reports headache. Cardiovascular: No deficits noted. Respiratory: No deficits noted. GI: No deficits noted. No signs and/or symptoms were reported involving the gastrointestinal system. : No deficits noted. No signs and/or symptoms were reported regarding the genitourinary system. EENT: No deficits noted. No signs and/or symptoms were reported regarding the EENT system. Derm: No deficits noted. No signs and/or symptoms reported regarding the dermatologic system. Musculoskeletal: No deficits noted. No signs and/or symptoms reported regarding the musculoskeletal system. Vital Signs: 21:23 BP 142 / 98; Pulse 72; Resp 20; Temp 99.3(O); Pulse Ox 99% on R/A; Weight 115.67 kg; tm6 Height 5 ft. 5 in. ; Pain 4/10; 06/30 00:10 BP 132 / 85; Pulse 89; Resp 15; Temp 98.5; Pulse Ox 100% ; Pain 2/10; jm12 06/29 21:23 Body Mass Index 42.43 (115.67 kg, 165.1 cm) tm6 06/29 21:23 Pain Scale: Adult tm6 06/30 00:10 Pain Scale: Adult [facility] ED Course: 06/29 21:11 Patient arrived in ED. jj6 21:14 Rebecca Jiang PA-C is PHCP. sb4 21:14 Gordy Jennings MD is Attending Physician. sb4 21:26 Triage completed. tm6 21:26 Arm band placed on right wrist. tm6 21:54 Inserted saline lock: 22 gauge in left antecubital area, using aseptic technique. Blood tm6 collected. Flushed with 10 mL NS. 21:55 Patient has correct armband on for positive identification. Bed in low position. Call tm6 light in reach. Side rails up X 1. Provided Education on: use of call bustos. Client placed on continuous cardiac and pulse oximetry monitoring. NIBP monitoring applied. Pulse ox on. NIBP on. Door closed. Noise minimized. 21:55 Test, Urine Sent. tm6 21:55 Flu Sent. tm6 21:55 SARS RAPID Sent. tm6 21:55 Magnesium Sent. tm6 21:55 BMP Sent. tm6 21:55 CBC with Diff Sent. tm6 22:15 Chest Single View XRAY In Process Unspecified. EDMS 22:21 Head Brain Wo Cont CT In Process Unspecified. EDMS 23:38 Add On-Lab Sent. 4 06/30 00:15 IV discontinued, intact, bleeding controlled, No redness/swelling at site. Pressure 12 dressing applied. Administered Medications: 06/29 22:02 Drug: metoCLOPramide IVP 10 mg IVP once; over 1 to 2 minutes Route: IVP; Site: left 12 antecubital; 23:53 Follow up: Response: Marked relief of symptoms; Pain is decreased [facility] 22:02 Drug: diphenhydrAMINE IVP 25 mg IVP once Route: IVP; Site: left antecubital; [facility] 23:52 Follow up: Response: Marked relief of symptoms; Pain is decreased 22:02 Drug: NS 0.9% IV 1000 ml IV at 1 bolus Per protocol; 1000 mL bolus Route: IV; Rate: 1 jm12 bolus; Site: left antecubital; 22:03 Drug: Ketorolac IVP 30 mg IVP once Route: IVP; Site: left antecubital; 12 23:53 Follow up: Response: Adverse reaction, Physician notified; Pain is decreased [facility] 23:25 Drug: Rocephin IV 1 grams IV at calculated rate once; Given slow IV push per pharmacy jm12 instructions Route: IV; Rate: calculated rate; Site: left antecubital; :52 Follow up: IV Status: Completed infusion :52 Drug: AZITHromycin IVPB 500 mg IVPB once over 1 hrs; (mix in 250 mL NS) Route: IVPB; jm12 Infused Over: 1 hrs; Site: left antecubital; 06/30 00:10 Follow up: IV Status: Completed infusion [facility] Medication: 06/29 21:55 VIS not applicable for this client. 6 Outcome: 23:44 Discharge ordered by MD. leyva 06/30 00:00 Discharge instructions given to patient, Instructed on discharge instructions, follow 12 up and referral plans. Demonstrated understanding of instructions, follow-up care, 00:[address] [facility] 00:15 Discharged to home ambulatory, 00:15 Condition: stable 00:53 [address] the ED[address] [facility] Signatures: Dispatcher [employer] EDMS Shannan Moreno Sophia, PA-C PASean sb4 Siva Storm RN RN 6 Leyla Fuller RN RN 12
[2024-06-30 01:08] VITALS: BP 142/98; TEMP 99.3; O2SAT 99
== END 2024-06-30 00:53 | disposition home or self-care (01) ==
LOC: ER 21:05
DX: J18.9 Pneumonia, unspecified organism (principal); Z11.52 Encounter for screening for COVID-19; Z32.01 Encounter for pregnancy test, result positive
CPT/HCPCS: 96365; 96367; 85025; 81001; 80048; 36415; 83735; 81025; 84702; 87804 ×2; 70450; 71045; 96375; 99284; 87811; J2765; J1200; J7050; J7030; J0696